=== PATIENT | female | born 1965 | race Hispanic/Latino ===

== ENCOUNTER 2018-02-09 22:20 | Emergency (ER) | payer OTHER ==
[2018-02-09] MEDS ORDERED: PHENAZOPYRIDINE 100MG TAB PO ONE (23:00)
[2018-02-09] MEDS ORDERED: SMZ./TMP. 800/160 MG TABLET ONE (23:00)
[2018-02-09] MEDS ORDERED: NITROFURAN MACRO 100 MG CAP PO ONE (23:00)
[2018-02-09 23:18] LABS: Urine Blood 1+ (NEG); Urine Glucose NEGATIVE (NEG); Urine Protein 1+ (NEG); Urine Specific Gravity 1.025 (1.005-1.030); Urine pH 5.5 (5.0-7.0)
[2018-02-09 23:51] LABS: Urine Bacteria 20-50 /HPF (<20); Urine Culture Reflex Order NOT NEEDED
[2018-02-09 23:52] LABS: Urine RBC <5 /HPF (NONE SEEN)
--- NOTE | 2018-02-10 00:21 | EDPHYS ---
Physician Documentation [facility] Name: Almaz Mario Age: 52 yrs Sex: Female : 1965 Arrival Date: 02/09/2018 Time: 22:23 Bed 25 Private MD: ED Physician Kaden Johnson HPI: 02/10 01:29 This 52 yrs old Female presents to ER via Ambulatory with complaints of Pain snw With Urination, Abdominal Pain. 01:29 The patient presents with urinary symptoms, dysuria, frequency, hematuria, hesitancy, snw urgency. Onset: The symptoms/episode began/occurred 7 day(s) ago, and became worse 3 day(s) ago, and became persistent. Modifying factors: The symptoms are alleviated by nothing. Associated signs and symptoms: The patient has no apparent associated signs or symptoms. Severity of symptoms: At their worst the symptoms were incapacitating, earlier today. The patient has experienced a previous episode. 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 CLAIM REVIEW MEDICAL DIRECTOR: 02/09 22:50 LMP N/A - Post-menopause tl3 Historical: - Allergies: 22:50 No Known Allergies; tl3 - Home Meds: 22:50 atorvastatin 20 mg Oral tab 1 tab once daily [Active]; gabapentin 600 mg Oral tab 2 tab tl3 3 times per day [Active]; lisinopril 10 mg Oral tab 1 tab once daily [Active]; Coricidin HBP 10-200 mg oral cap as needed [Active]; - PMHx: 22:50 Chronic pain; Hyperlipidemia; Hypertension; tl3 - PSHx: 22:50 ; tl3 - Immunization history:: Adult Immunizations up to date. - Social history:: Smoking status: Patient uses tobacco products, smokes one-half pack cigarettes per day, Patient/guardian denies using alcohol. ROS: 02/10 01:24 Eyes: Negative for injury, pain, redness, and discharge, ENT: Negative for injury, snw pain, and discharge, Neck: Negative for injury, pain, and swelling, Cardiovascular: Negative for chest pain, palpitations, and edema, Respiratory: Negative for shortness of breath, cough, wheezing, and pleuritic chest pain, Abdomen/GI: Negative for abdominal pain, nausea, vomiting, diarrhea, and constipation, Back: Negative for injury and pain, MS/Extremity: Negative for injury and deformity, Skin: Negative for injury, rash, and discoloration, Neuro: Negative for headache, weakness, numbness, tingling, and seizure. Constitutional: Positive for fatigue. : Positive for urinary symptoms, urinary frequency, small amounts, hematuria, burning with urination, suprapubic pressure, urgency. Exam: 01:24 Constitutional: This is a well developed, well nourished patient who is awake, alert, snw and uncomfortable/restless Head/Face: Normocephalic, atraumatic. Eyes: Pupils equal round and reactive to light, extra-ocular motions intact. Lids and lashes normal. Conjunctiva and sclera are non-icteric and not injected. Cornea within normal limits. Periorbital areas with no swelling, redness, or edema. ENT: Nares patent. No nasal discharge, no septal abnormalities noted. Tympanic membranes are normal and external auditory canals are clear. Oropharynx with no redness, swelling, or masses, exudates, or evidence of obstruction, uvula midline. Mucous membranes moist. Neck: Trachea midline, no thyromegaly or masses palpated, and no cervical lymphadenopathy. Supple, full range of motion without nuchal rigidity, or vertebral point tenderness. No Meningismus. Chest/axilla: Normal chest wall appearance and motion. Nontender with no deformity. No lesions are appreciated. Cardiovascular: Regular rate and rhythm with a normal S1 and S2. No gallops, murmurs, or rubs. Normal PMI, no JVD. No pulse deficits. Respiratory: Lungs have equal breath sounds bilaterally, clear to auscultation and percussion. No rales, rhonchi or wheezes noted. No increased work of breathing, no retractions or nasal flaring. Abdomen/GI: Soft, non-tender, with normal bowel sounds. No distension or tympany. No guarding or rebound. No evidence of tenderness throughout except suprapubic pressure. Back: No spinal tenderness. No costovertebral tenderness. Full range of motion. Skin: Warm, dry with normal turgor. Normal color with no rashes, no lesions, and no evidence of cellulitis. MS/ Extremity: Pulses equal, no cyanosis. Neurovascular intact. Full, normal range of motion. Neuro: Awake and alert, GCS 15, oriented to person, place, time, and situation. Cranial nerves II-XII grossly intact. Motor strength 5/5 in all extremities. Sensory grossly intact. Cerebellar exam normal. Normal gait. Vital Signs: 02/09 22:50 BP 145 / 98; Pulse 104; Resp 18; Temp 98.6; Pulse Ox 100% ; Weight 64.41 kg; Height 4 tl3 ft. 11 in. (149.86 cm); Pain 10/10; 02/10 00:44 BP 136 / 92; Pulse 98; Resp 18; Pulse Ox 100% ; tl3 02/09 22:50 Body Mass Index 28.68 (64.41 kg, 149.86 cm) tl3 MDM: 02/09 22:42 Patient medically screened. snw 02/10 01:27 Data reviewed: vital signs, nurses notes. Data interpreted: Pulse oximetry: on room air snw is 100 %. Interpretation: normal. Counseling: I had a detailed discussion with the patient and/or guardian regarding: the historical points, exam findings, and any diagnostic results supporting the discharge/admit diagnosis, the presence of at least one elevated blood pressure reading (>120/80) during this emergency department visit, lab results, the need for outpatient follow up, to return to the emergency department if symptoms worsen or persist or if there are any questions or concerns that arise at home. Special discussion: Based on the history and exam findings, there is no indication for further emergent testing or inpatient evaluation. I discussed with the patient/guardian the need to see the primary care provider for further evaluation of the symptoms. ED course: Pt seen recently for similar s/s per Dr. Jonhson, dx with yeast infection. Took course x 2 of Diflucan, symptoms worsened and pt c/o significant dysuria, frequency, urgency, suprapubic pressure. 02/09 22:33 Order name: Urine Culture snw 02/09 22:33 Order name: Urine Microscopic Only; Complete Time: 23:59 snw 02/09 22:45 Order name: Urine Dipstick--Ancillary (enter results); Complete Time: 23:20 rg2 02/09 22:33 Order name: Urine Dipstick-Ancillary (obtain specimen); Complete Time: 22:46 snw Administered Medications: 02/09 23:03 Drug: Pyridium 200 mg Route: PO; tl3 02/10 00:43 Follow up: Response: No adverse reaction tl3 02/09 23:03 Drug: Macrobid 100 mg Route: PO; tl3 02/10 00:43 Follow up: Response: No adverse reaction tl3 02/09 23:03 Drug: Bactrim (160 mg-800 mg (DS) 1 tablet Route: PO; tl3 02/10 00:43 Follow up: Response: No adverse reaction tl3 00:40 Drug: Bentyl 20 mg Route: PO; tl3 00:44 Follow up: Response: No adverse reaction; Medication administered at discharge. tl3 Disposition: 02:38 Co-signature as Attending Physician, Kaden Johnson MD. rn Disposition: 02/10/18 00:20 Discharged to Home. Impression: Dysuria, Urinary tract infection, site not specified. - Condition is Stable. - Discharge Instructions: Dysuria, Hypertension, Urinary Tract Infection. - Prescriptions for Bactrim DS 800- 160 mg Oral Tablet - take 1 tablet by ORAL route every 12 hours for 10 days; 20 tablet. Pyridium 200 mg Oral Tablet - take 1 tablet by ORAL route every 8 hours for 3 days; 9 tablet. Macrobid 100 mg Oral Capsule - take 1 capsule by ORAL route every 12 hours for 10 days; 20 capsule. - Medication Reconciliation Form, Thank You Letter, Antibiotic Education, Prescription Opioid Use form. - Follow up: Private Physician; When: 2 - 3 days; Reason: Recheck today's complaints, Continuance of care, Re-evaluation by your physician. Follow up: Emergency Department; When: As needed; Reason: Worsening of condition. Signatures: Dispatcher [employer] EDIN Kimberly Madrigal, LIZBET-C FILTERATION OPERATOR-Csnw Kaden Johnson MD MD rn Lowrey, Tammy, RN RN tl3 Corrections: (The following items were deleted from the chart) 00:46 00:20 02/10/2018 00:20 Discharged to Home. Impression: Dysuria; Urinary tract tl3 infection, site not specified. Condition is Stable. Forms are Medication Reconciliation Form, Thank You Letter, Antibiotic Education, Prescription Opioid Use. Follow up: Private Physician; When: 2 - 3 days; Reason: Recheck today's complaints, Continuance of care, Re-evaluation by your physician. Follow up: Emergency Department; When: As needed; Reason: Worsening of condition. snw
--- NOTE | 2018-02-10 00:21 | ER ---
Nurse's Notes [facility] Name: Almaz Mario Age: 52 yrs Sex: Female : 1965 Arrival Date: 02/09/2018 Time: 22:23 Bed 25 Private MD: Diagnosis: Dysuria;Urinary tract infection, site not specified Presentation: 02/09 22:40 Presenting complaint: Patient states: burning with urination, treated this week for a tl3 yeast infection, S/S did not improve, called PCP on Saturday and let them know and nothing was called in to her pharmacy. Transition of care: patient was not received from another setting of care. Onset of symptoms was February 02, 2018. Initial Sepsis Screen: Does the patient meet any 2 criteria? No. Patient's initial sepsis screen is negative. Does the patient have a suspected source of infection? No. Patient's initial sepsis screen is negative. Care prior to arrival: None. 22:40 Method Of Arrival: Ambulatory tl3 22:40 Acuity: KELLY 3 tl3 Triage Assessment: 22:50 General: Appears uncomfortable, well groomed, well developed, well nourished, Behavior tl3 is calm, cooperative, appropriate for age, anxious, restless. Pain: Complains of pain in pelvis. EENT: No signs and/or symptoms were reported regarding the EENT system. Neuro: Cardiovascular: Heart tones S1 S2 present. Respiratory: Airway is patent Trachea midline Respiratory effort is even, unlabored, Respiratory pattern is regular, symmetrical, Breath sounds are clear bilaterally. GI: No signs and/or symptoms were reported involving the gastrointestinal system. : Urine is cloudy, Reports burning with urination, urgency, urinary frequency. Derm: No signs and/or symptoms reported regarding the dermatologic system. Musculoskeletal: No signs and/or symptoms reported regarding the musculoskeletal system. SURGICAL ASST: 22:50 LMP N/A - Post-menopause tl3 Historical: - Allergies: 22:50 No Known Allergies; tl3 - Home Meds: 22:50 atorvastatin 20 mg Oral tab 1 tab once daily [Active]; gabapentin 600 mg Oral tab 2 tab tl3 3 times per day [Active]; lisinopril 10 mg Oral tab 1 tab once daily [Active]; Coricidin HBP 10-200 mg oral cap as needed [Active]; - PMHx: 22:50 Chronic pain; Hyperlipidemia; Hypertension; tl3 - PSHx: 22:50 ; tl3 - Immunization history:: Adult Immunizations up to date. - Social history:: Smoking status: Patient uses tobacco products, smokes one-half pack cigarettes per day, Patient/guardian denies using alcohol. Screenin:53 Abuse screen: Denies threats or abuse. Nutritional screening: No deficits noted. tl3 Tuberculosis screening: No symptoms or risk factors identified. Fall Risk None identified. Assessment: 22:53 Reassessment: No changes from previously documented assessment. Patient is alert, tl3 oriented x 3, equal unlabored respirations, skin warm/dry/pink. Kimberly at bedside for exam. 22:54 GI: No signs and/or symptoms were reported involving the gastrointestinal system. tl3 23:03 Reassessment: pt has made numerous trips to the bathroom since arrival, has urgency tl3 with small amount of output. 23:04 GI: Abd is soft and non tender X 4 quads. tl3 02/10 00:44 Reassessment: Patient appears in no apparent distress at this time. No changes from tl3 previously documented assessment. Patient and/or family updated on plan of care and expected duration. Pain level reassessed. Patient is alert, oriented x 3, equal unlabored respirations, skin warm/dry/pink. Vital Signs: 02/09 22:50 BP 145 / 98; Pulse 104; Resp 18; Temp 98.6; Pulse Ox 100% ; Weight 64.41 kg; Height 4 tl3 ft. 11 in. (149.86 cm); Pain 10/10; 02/10 00:44 BP 136 / 92; Pulse 98; Resp 18; Pulse Ox 100% ; tl3 02/09 22:50 Body Mass Index 28.68 (64.41 kg, 149.86 cm) tl3 ED Course: 02/09 22:23 Patient arrived in ED. ds1 22:29 Kimberly Madrigal FNP-C is PHCP. snw 22:29 Kaden Johnson MD is Attending Physician. snw 22:38 Macy Engel, CONNOR is Primary Nurse. tl3 22:44 Triage completed. tl3 22:50 Arm band placed on right wrist. tl3 22:53 Pt. is pacing. tl3 22:53 Patient has correct armband on for positive identification. Placed in gown. Bed in low tl3 position. Call light in reach. 22:53 No provider procedures requiring assistance completed. Patient did not have IV access tl3 during this emergency room visit. Administered Medications: 23:03 Drug: Pyridium 200 mg Route: PO; tl3 02/10 00:43 Follow up: Response: No adverse reaction tl3 02/09 23:03 Drug: Macrobid 100 mg Route: PO; tl3 02/10 00:43 Follow up: Response: No adverse reaction tl3 02/09 23:03 Drug: Bactrim (160 mg-800 mg (DS) 1 tablet Route: PO; tl3 02/10 00:43 Follow up: Response: No adverse reaction tl3 00:40 Drug: Bentyl 20 mg Route: PO; tl3 00:44 Follow up: Response: No adverse reaction; Medication administered at discharge. tl3 Outcome: 00:20 Discharge ordered by . snw 00:44 Discharged to home ambulatory. tl3 00:44 Condition: stable 00:44 Discharge instructions given to patient, Instructed on discharge instructions, follow up and referral plans. medication usage, Demonstrated understanding of instructions, follow-up care, medications, Prescriptions given X 3, stressed fluid intake, follow up with PCP 00:46 Patient left the ED. tl3 Addendum: 02/14/2018 07:37 Addendum: Culture Results: Positive urine culture. No further action required. Bacteria i w sensitive to prescribed antibiotic. Signatures: Kimberly Madrigal, MARKETING STRATEGY MANAGER-C MARKETING STRATEGY MANAGER-Csnw Leola Gonzalez ds1 Renita Kerr RN RN iw Macy Engel RN RN tl3
[2018-02-10] MEDS ORDERED: DICYCLOMINE HCL 10 MG CAP ONE (00:39)
== END 2018-02-10 00:46 | disposition home or self-care (01) ==
LOC: ER 22:20
DX: N39.0 Urinary tract infection, site not specified (principal); I10 Essential (primary) hypertension; E78.5 Hyperlipidemia, unspecified
CPT/HCPCS: 81003; 81015; 87077; 87086; 87088; 87186; 99283

== ENCOUNTER 2018-06-22 14:38 | Emergency (ER) | payer OTHER ==
[2018-06-22] MEDS ORDERED: NA CHLORIDE 0.9% 1,000 ML ONE ×2 (15:38→15:40)
[2018-06-22 16:13] LABS: Urine Blood TRACE (NEG); Urine Glucose NEGATIVE (NEG); Urine Protein NEGATIVE (NEG); Urine Specific Gravity >1.030 (1.005-1.030); Urine pH 5.5 (5.0-7.0)
[2018-06-22] MEDS ORDERED: KETOROLAC 30 MG/ML INJ ONE (16:24)
--- NOTE | 2018-06-22 17:42 | EDPHYS ---
Physician Documentation [facility] Name: Almaz Mario Age: 52 yrs Sex: Female : 1965 Arrival Date: 06/22/2018 Time: 14:39 Bed 23 Private MD: ED Physician Kaden Johnson HPI: 06/22 17:25 This 52 yrs old Female presents to ER via Ambulatory with complaints of Sore kb Throat, Cold Symptoms. 17:25 The patient presents with sore throat. The patient describes throat pain as constant. kb Onset: The symptoms/episode began/occurred 4 day(s) ago. Severity of symptoms: At their worst the symptoms were moderate, in the emergency department the symptoms are unchanged. Modifying factors: The symptoms are alleviated by nothing, the symptoms are aggravated by nothing, Patient's oral intake status: limited fluid intake, limited food intake. Associated signs and symptoms: Pertinent positives: cough, flu-like symptoms, malaise, rhinorrhea, Sore throat. The patient has not experienced similar symptoms in the past. The patient has not recently seen a physician. Pt c/o sore throat, headache, cough, congestion, body aches, malaise for 4 days. . Historical: - Allergies: 15:19 No Known Allergies; la1 - PMHx: 15:19 Chronic pain; Hyperlipidemia; Hypertension; la1 - Immunization history:: Adult Immunizations up to date. - Social history:: Smoking status: unknown. - Ebola Screening: : No symptoms or risks identified at this time. ROS: 17:25 Neck: Negative for injury, pain, and swelling, Cardiovascular: Negative for chest pain, kb palpitations, and edema, Abdomen/GI: Negative for abdominal pain, nausea, vomiting, diarrhea, and constipation, Back: Negative for injury and pain, : Negative for injury, bleeding, discharge, and swelling, MS/Extremity: Negative for injury and deformity, Skin: Negative for injury, rash, and discoloration. 17:25 Constitutional: Positive for body aches, fatigue, malaise, poor PO intake, Negative for chills, fever, weight loss. 17:25 ENT: Positive for rhinorrhea, sinus congestion, sore throat. 17:25 Respiratory: Positive for cough, Negative for dyspnea on exertion, hemoptysis, orthopnea, pleurisy, shortness of breath, sputum production, wheezing. Exam: 17:25 Constitutional: This is a well developed, well nourished patient who is awake, alert, kb and in no acute distress. Head/Face: Normocephalic, atraumatic. ENT: Nares patent. No nasal discharge, no septal abnormalities noted. Tympanic membranes are normal and external auditory canals are clear. Oropharynx with no redness, swelling, or masses, exudates, or evidence of obstruction, uvula midline. Mucous membranes moist. Neck: Trachea midline, no thyromegaly or masses palpated, and no cervical lymphadenopathy. Supple, full range of motion without nuchal rigidity, or vertebral point tenderness. No Meningismus. Chest/axilla: Normal chest wall appearance and motion. Nontender with no deformity. No lesions are appreciated. Cardiovascular: Regular rate and rhythm with a normal S1 and S2. No gallops, murmurs, or rubs. Normal PMI, no JVD. No pulse deficits. Respiratory: Lungs have equal breath sounds bilaterally, clear to auscultation and percussion. No rales, rhonchi or wheezes noted. No increased work of breathing, no retractions or nasal flaring. Abdomen/GI: Soft, non-tender, with normal bowel sounds. No distension or tympany. No guarding or rebound. No evidence of tenderness throughout. Skin: Warm, dry with normal turgor. Normal color with no rashes, no lesions, and no evidence of cellulitis. MS/ Extremity: Pulses equal, no cyanosis. Neurovascular intact. Full, normal range of motion. Neuro: Awake and alert, GCS 15, oriented to person, place, time, and situation. Cranial nerves II-XII grossly intact. Motor strength 5/5 in all extremities. Sensory grossly intact. Cerebellar exam normal. Normal gait. 17:25 Head/face: Sinus tenderness, that is mild. Vital Signs: 15:19 BP 135 / 87; Pulse 84; Resp 18; Temp 98.9; Pulse Ox 100% on R/A; Weight 63.5 kg; Height la1 4 ft. 11 in. (149.86 cm); 16:45 BP 137 / 84 RA Supine (auto/reg); Pulse 67; Resp 19 S; Pulse Ox 100% on R/A; Pain 3/10; jp3 17:46 BP 134 / 75; Pulse 74; Resp 16; Temp 97.5; Pulse Ox 100% on R/A; la1 15:19 Body Mass Index 28.28 (63.50 kg, 149.86 cm) la1 MDM: 15:20 Patient medically screened. kb 17:25 Data reviewed: vital signs, nurses notes. Data interpreted: Pulse oximetry: on room air kb is 100 %. Interpretation: normal. Counseling: I had a detailed discussion with the patient and/or guardian regarding: the historical points, exam findings, and any diagnostic results supporting the discharge/admit diagnosis, lab results, radiology results, the need for outpatient follow up, a family practitioner, to return to the emergency department if symptoms worsen or persist or if there are any questions or concerns that arise at home. 06/22 15:23 Order name: Strep; Complete Time: 15:55 kb 06/22 15:23 Order name: Flu; Complete Time: 15:55 kb 06/22 15:23 Order name: Juab Screen Profile; Complete Time: 16:15 kb 06/22 15:37 Order name: Urine Dipstick--Ancillary (enter results); Complete Time: 16:15 bd 06/22 15:55 Order name: Throat Culture EDMS 06/22 16:16 Order name: Chest Pa And Lat (2 Views) XRAY kb 06/22 15:23 Order name: Urine Dipstick-Ancillary (obtain specimen); Complete Time: 15:36 kb 06/22 15:23 Order name: IV Start; Complete Time: 15:36 kb Administered Medications: 15:35 Drug: NS 0.9% 1000 ml Route: IV; Rate: 1000 ml; Site: left antecubital; la1 17:16 Follow up: IV Status: Completed infusion la1 16:20 Drug: TORadol 30 mg Route: IVP; Site: left antecubital; la1 17:16 Follow up: Response: No adverse reaction; Pain is decreased la1 Disposition: 18:55 Co-signature as Attending Physician, Kaden Johnson MD. rn Disposition: 06/22/18 17:41 Discharged to Home. Impression: Acute sinusitis. - Condition is Stable. - Prescriptions for Prednisone 20 mg Oral Tablet - take 1 tablet by ORAL route once daily for 5 days; 5 tablet. - Medication Reconciliation Form, Thank You Letter, Antibiotic Education, Prescription Opioid Use form. - Follow up: Emergency Department; When: As needed; Reason: Worsening of condition. Follow up: Private Physician; When: 2 - 3 days; Reason: Recheck today's complaints, Continuance of care, Re-evaluation by your physician. Signatures: Dispatcher [employer] EDKoki Morales, ANESTHESIOLOGY PHYSICIAN-C ANESTHESIOLOGY PHYSICIAN-Ckb Kaden Johnson MD MD rn Abisai Prajapati RN RN la1 Corrections: (The following items were deleted from the chart) 17:46 17:41 06/22/2018 17:41 Discharged to Home. Impression: Acute sinusitis. Condition is la1 Stable. Forms are Medication Reconciliation Form, Thank You Letter, Antibiotic Education, Prescription Opioid Use. Follow up: Emergency Department; When: As needed; Reason: Worsening of condition. Follow up: Private Physician; When: 2 - 3 days; Reason: Recheck today's complaints, Continuance of care, Re-evaluation by your physician. kb
--- NOTE | 2018-06-22 17:42 | ER ---
Nurse's Notes [facility] Name: Almaz Mario Age: 52 yrs Sex: Female : 1965 Arrival Date: 06/22/2018 Time: 14:39 Bed 23 Private MD: Diagnosis: Acute sinusitis Presentation: 06/22 15:17 Presenting complaint: Patient states: sore throat, malaise, nasal drainage for 3 days. la1 Transition of care: patient was not received from another setting of care. Onset of symptoms was June 22, 2018. Risk Assessment: Do you want to hurt yourself or someone else? Patient reports no desire to harm self or others. Initial Sepsis Screen: Does the patient meet any 2 criteria? No. Patient's initial sepsis screen is negative. Does the patient have a suspected source of infection? No. Patient's initial sepsis screen is negative. Care prior to arrival: None. 15:17 Method Of Arrival: Ambulatory la1 15:17 Acuity: KELLY 3 la1 Historical: - Allergies: 15:19 No Known Allergies; la1 - PMHx: 15:19 Chronic pain; Hyperlipidemia; Hypertension; la1 - Immunization history:: Adult Immunizations up to date. - Social history:: Smoking status: unknown. - Ebola Screening: : No symptoms or risks identified at this time. Screenin:38 Abuse screen: Denies threats or abuse. Nutritional screening: No deficits noted. la1 Tuberculosis screening: No symptoms or risk factors identified. Fall Risk None identified. Assessment: 15:37 General: Appears in no apparent distress. Behavior is calm, cooperative. Pain: la1 Complains of pain in throat. Neuro: Level of Consciousness is awake, alert, obeys commands, Oriented to person, place, time, situation. Cardiovascular: Capillary refill < 3 seconds Patient's skin is warm and dry. Respiratory: Airway is patent Respiratory effort is even, unlabored, Respiratory pattern is regular, symmetrical, Breath sounds are clear bilaterally. GI: No signs and/or symptoms were reported involving the gastrointestinal system. : No signs and/or symptoms were reported regarding the genitourinary system. EENT: Throat is reddened. Vital Signs: 15:19 BP 135 / 87; Pulse 84; Resp 18; Temp 98.9; Pulse Ox 100% on R/A; Weight 63.5 kg; Height la1 4 ft. 11 in. (149.86 cm); 16:45 BP 137 / 84 RA Supine (auto/reg); Pulse 67; Resp 19 S; Pulse Ox 100% on R/A; Pain 3/10; jp3 17:46 BP 134 / 75; Pulse 74; Resp 16; Temp 97.5; Pulse Ox 100% on R/A; la1 15:19 Body Mass Index 28.28 (63.50 kg, 149.86 cm) la1 ED Course: 14:39 Patient arrived in ED. as 14:40 [facility]C [facility] kb 14:40 Kaden Johnson MD is Attending Physician. kb 15:17 Abisai Prajapati, CONNOR is Primary Nurse. la1 15:18 Triage completed. la1 15:20 Arm band placed on left wrist. la1 15:30 Urine collected: clean catch specimen, clear, shanna colored, Amount Voided: 30mL. jp3 15:38 Bed in low position. Call light in reach. la1 15:38 Inserted saline lock: 20 gauge in left antecubital area, using aseptic technique. Blood la1 collected. 16:42 Throat Culture Sent. jp3 17:28 X-ray completed. Patient tolerated procedure well. tm4 17:29 Chest Pa And Lat (2 Views) XRAY In Process Unspecified. EDMS 17:45 No provider procedures requiring assistance completed. IV discontinued, intact, la1 bleeding controlled, No redness/swelling at site. Pressure dressing applied. Administered Medications: 15:35 Drug: NS 0.9% 1000 ml Route: IV; Rate: 1000 ml; Site: left antecubital; la1 17:16 Follow up: IV Status: Completed infusion la1 16:20 Drug: TORadol 30 mg Route: IVP; Site: left antecubital; la1 17:16 Follow up: Response: No adverse reaction; Pain is decreased la1 Outcome: 17:41 Discharge ordered by . kb 17:45 Discharged to home ambulatory. la1 17:45 Condition: stable 17:45 Discharge instructions given to patient, Instructed on discharge instructions, follow up and referral plans. medication usage, Demonstrated understanding of instructions, follow-up care, medications, Prescriptions given X 1. 17:46 Patient left the ED. la1 Signatures: Dispatcher [employer] EDMS Koki Rodriguez FNP-C SCIENCE AND OPERATIONS OFFICER-Ckb Leigh Flores tm4 Dominga Polanco Lee, RN RN la1 Paul Osorio jp3
--- NOTE | 2018-06-22 20:26 | RAD REPORT ---
EXAM DESCRIPTION: RAD - Chest Pa And Lat (2 Views) - 06/22/2018 5:31 pm CLINICAL HISTORY: Sore throat, shortness of breath, cough COMPARISON: May 2015 TECHNIQUE: PA and lateral views of the chest were obtained. FINDINGS: The lungs are clear. Heart size is normal and central vasculature is within normal limit s. No pleural effusion or pneumothorax seen. No acute bony finding noted. No aortic abnormality. IMPRESSION: No acute cardiopulmonary process. No significant change from comparison.
== END 2018-06-22 17:46 | disposition home or self-care (01) ==
LOC: ER 14:38
DX: J01.90 Acute sinusitis, unspecified (principal); J02.9 Acute pharyngitis, unspecified; E78.5 Hyperlipidemia, unspecified; I10 Essential (primary) hypertension; G89.29 Other chronic pain
CPT/HCPCS: 36415; 71046; 81003; 86308; 87070; 87081; 87804; 96361; 96374; 99284; J7030

== ENCOUNTER 2019-04-19 08:52 | Emergency (ER) | payer OTHER, SELFPAY ==
[2019-04-19] MEDS ORDERED: LORazepam 2 MG/ML VIAL ONE ×2 (09:39→17:01)
[2019-04-19 09:41] LABS: Absolute Lymphocytes (CBC) 1.9 K/uL (0.7-4.9); Basophils % 0.5 % (0-1.3); Eosinophils % 0.5 % (0-4.4); Hematocrit 42.7 % (36.0-45.0); Lymphocytes % 19.2 % (15.3-44.8); MPV 8.1 fL (7.6-11.3); Monocytes % 3.5 % (3.3-12.3); RBC Red Blood Cell Count 4.53 M/uL (3.86-4.86)
[2019-04-19 09:43] LABS: Barbiturates NEGATIVE (NEGATIVE); Benzodiazepines NEGATIVE (NEGATIVE); Cocaine NEGATIVE (NEGATIVE); METHAMPHETAM NEGATIVE (NEGATIVE); Methadone NEGATIVE (NEGATIVE); Opiates NEGATIVE (NEGATIVE); Phencyclidine NEGATIVE (NEGATIVE); THC Cannibis NEGATIVE (NEGATIVE)
[2019-04-19 09:45] LABS: Protime INR 0.99
--- NOTE | 2019-04-19 09:54 | RAD REPORT ---
EXAM DESCRIPTION: CT - Head Brain Wo Cont - 04/19/2019 9:46 am CLINICAL HISTORY: Dizziness, transient alteration of awareness COMPARISON: May 2015 CT head. TECHNIQUE: Axial 5 mm thick images of the head were obtained without IV contrast. All CT scans are performed using dose optimization technique as appropriate and may include automated exposure control or mA/KV adjustment according to patient size. FINDINGS: No intracranial hemorrhage, mass, edema or shift of mid-line structures. No acute infarcti on changes seen. No abnormal extra-axial fluid collections. Ventricles are normal. Physiologic calcif ications are present. Mastoid air cells and visualized portions of the paranasal sinuses are clear. No acute bony findings. No significant change from comparison. IMPRESSION: Negative non-contrast CT head examination for acute or significant finding. .
[2019-04-19 09:55] LABS: ALT/SGPT 34 U/L (12-78); AST/SGOT 18 U/L (15-37); Albumin 4.9 g/dL (3.4-5.0); Alkaline Phosphatase 127 U/L (45-117); BUN Blood Urea Nitrogen 12 mg/dL (7-18); Bicarbonate 28 mmol/L (21-32); Bilirubin Direct < 0.1 mg/dL (0-0.2); Bilirubin Total 0.3 mg/dL (0.2-1.0); Glucose Level 107 mg/dL (74-106); Potassium 3.9 mmol/L (3.5-5.1); Protein, Total 8.3 g/dL (6.4-8.2); Sodium Level 140 mmol/L (136-145)
[2019-04-19 10:39] LABS: Urine Blood NEGATIVE (NEG); Urine Glucose NEGATIVE (NEG); Urine Protein NEGATIVE (NEG)
--- NOTE | 2019-04-19 22:28 | ER ---
Nurse's Notes [facility] Name: Almaz Mario Age: 53 yrs Sex: Female : 1965 Arrival Date: 04/19/2019 Time: 08:55 Bed 6 Private MD: Diagnosis: Suicidal ideations Presentation: 04/19 09:11 Presenting complaint: Patient states: SUICIDAL IDEATION 2/2 RECENT LOSS OF FAMILY bp MEMBERS. Transition of care: patient was not received from another setting of care. Onset of symptoms is unknown. Risk Assessment: Do you want to hurt yourself or someone else? Patient reports desire/thoughts of hurting themselves or someone else. Provider notified. Initial Sepsis Screen: Does the patient meet any 2 criteria? No. Patient's initial sepsis screen is negative. Does the patient have a suspected source of infection? No. Patient's initial sepsis screen is negative. Care prior to arrival: None. 09:11 Method Of Arrival: Ambulatory bp 09:11 Acuity: KELLY 2 bp Triage Assessment: 09:11 General: Appears distressed, comfortable, slender, Behavior is cooperative, appropriate bp for age, anxious, crying. Pain: Denies pain. EENT: No deficits noted. Neuro: Level of Consciousness is awake, alert, obeys commands, Oriented to person, place, time, situation, Appropriate for age. Cardiovascular: No deficits noted. Respiratory: No deficits noted. GI: No signs and/or symptoms were reported involving the gastrointestinal system. : No signs and/or symptoms were reported regarding the genitourinary system. Derm: No deficits noted. Musculoskeletal: No deficits noted. STUNTMAN: 09:11 LMP N/A - Post-menopause bp Historical: - Allergies: 09:07 No Known Allergies; ph - PMHx: 09:07 Chronic pain; Hyperlipidemia; Hypertension; ph - Immunization history:: Adult Immunizations up to date. - Social history:: Smoking status: Patient uses tobacco products, smokes one pack cigarettes per day. - Ebola Screening: : No symptoms or risks identified at this time. Screenin:08 Abuse screen: Denies threats or abuse. Denies injuries from another. Nutritional ph screening: No deficits noted. Tuberculosis screening: No symptoms or risk factors identified. Fall Risk None identified. Assessment: 09:15 General: SEE TRIAGE NOTE. bp 09:44 Reassessment: PT TO CT WITH MARKET EDITOR. bp 09:52 Reassessment: PT RETURNED TO ROOM. bp 10:20 Reassessment: ALL CURRENT ORDERS COMPLETED, BELONGINGS TO SECURITY EXCEPT PHONE AND bp HEADPHONES. RESULTS PENDING. SITTER AT [facility]. 11:14 Reassessment: PT PROVIDED LUNCH TRAY. aj 12:23 Reassessment: FAMILY AT [facility], TRANSFER IN PROCESS. bp 16:11 Reassessment: PT RESTING QUIETLY. NO RESPONSE FOR POTENTIAL TRANSFER FACILITIES AT THIS bp TIME. 18:50 Reassessment: FAMILY AT [facility], SECURITY CALLED AND BELONGINGS RELEASED TO SON. bp 19:15 Reassessment: Patient appears in no apparent distress at this time. Patient and/or ch family updated on plan of care and expected duration. Pain level reassessed. Patient is alert, oriented x 3, equal unlabored respirations, skin warm/dry/pink. pt has family at bedside. resps even and unlabored. pt states she feels better, but just wants it all to end. states if she went home, she is tired of being alone and would kill herself. 20:15 Reassessment: Patient appears in no apparent distress at this time. pt eating dinner in room, no s/s of distress, aaox4. pt tolerating food well, pt uses [facility]. awaiting transfer. family has left, sitter by room, door open. 21:45 Reassessment: nurse to nurse report given to robel at [facility] Robel instructs me ch to tell. Kimberly to page the psych, call the er dr. Angulo notified. 23:35 Reassessment: Patient appears in no apparent distress at this time. Patient and/or ch family updated on plan of care and expected duration. Pain level reassessed. Patient is alert, oriented x 3, equal unlabored respirations, skin warm/dry/pink. pt has acceptance to psych facility. report given to EMS and [facility]. awaiting pt belongings to come so EMS can transports pt. Psych: 09:17 Subjective: Patient's mood is sad, hopeless, Delusions are denied, Hallucinations are bp denied Having thoughts of suicide. Denies suicidal plan. Objective: Patient is cooperative, Speech is normal, soft, Affect is appropriate. Interventions: Removed personal items and placed in bag. Patient placed in hospital gown. Searched person for dangerous items. Urine collected and sent for urine drug test. Belonging list filled out. Suicide Risk Assessment: Sad Person Scale: Sex of patient: Female: Score 0 points. Age of patient: Score 0 point if patient falls outside of specified age parameters. Depression: Score 1 point if signs of depression are present. Previous Attempt: Score 0 point if patient has not previously attempted suicide. Substance Abuse: Score 0 point if patient does not abuse alcohol or drugs. Rational Thinking: Score 0 point if patient has rational thinking. Social Support: Score 1 point if social support is lacking and/or unavailable. Organized Plan: Score 0 if patient did not have an organized plan in place. Relationship: Score 1 point if patient is , , , or for a single male Chronic Sickness: Score 0 point if patient does not have a chronic illness, debilitating, or severe disorder. TOTAL POINTS: If total points are 3-4, proposed clinical action is close follow-up/consider hospitalization. Safety Checks: Personal items have been removed. Door is open. No visitors are present at this time. Pt denies substance abuse. Commitment: Patient will be a voluntary commitment. Vital Signs: 09:11 BP 136 / 83; Pulse 86; Resp 16; Temp 97.4; Pulse Ox 99% ; Weight 52.16 kg; Height 4 ft. bp 11 in. (149.86 cm); 10:00 BP 135 / 83; Pulse 79; Resp 14; Pulse Ox 99% ; bp 13:17 BP 101 / 77; Pulse 92; Resp 15; Pulse Ox 99% on R/A; dh3 16:12 BP 111 / 74; Pulse 85; Resp 16; Temp 98.0(O); Pulse Ox 99% on R/A; Pain 0/10; dh3 21:32 BP 129 / 74; Pulse 80; Resp 14; Temp 98.2(O); Pulse Ox 97% on R/A; ag4 23:35 BP 120 / 80; Pulse 80; Resp 16; Temp 98.7; Pulse Ox 99% on R/A; Pain 0/10; ch 09:11 Body Mass Index 23.23 (52.16 kg, 149.86 cm) bp 13:17 patient sleeping dh3 ED Course: 08:55 Patient arrived in ED. rg4 09:03 Octaviano Gambino, RN is Primary Nurse. bp 09:11 Arm band placed on. EKG completed in triage. Results shown to MD. EKG completed in bp triage. Results shown to MD. 09:11 Safety checks: Items removed: yes. Door open/sign placed on door: yes. Family/friend dh3 present: no. Sitter present: Yes. 09:12 Triage completed. bp 09:15 Safety checks: Items removed: yes. Door open/sign placed on door: yes. Family/friend dh3 present: no. Sitter present: Yes. 09:27 Koki Rodriguez FNP-C is PHCP. kb 09:27 Karel Armas MD is Attending Physician. kb 09:28 Inserted saline lock: 22 gauge in right antecubital area, using aseptic technique. bp Blood collected. 09:30 Safety checks: Items removed: yes. Door open/sign placed on door: yes. Family/friend dh3 present: no. Sitter present: Yes. 09:45 Safety checks: Items removed: yes. Door open/sign placed on door: yes. Family/friend dh3 present: no. Sitter present: Yes. 09:47 CT Head Brain wo Cont In Process Unspecified. EDMS 10:00 Safety checks: Items removed: yes. Door open/sign placed on door: yes. Family/friend dh3 present: no. Sitter present: Yes. 10:01 EKG done, by ED staff, reviewed by Karel Armas MD. dh3 10:09 called the [facility]/ Lizet from the crisis line will page out the screener on eb call to come evaluate the patient. 10:15 Safety checks: Items removed: yes. Door open/sign placed on door: yes. Family/friend dh3 present: no. Sitter present: Yes. 10:30 Safety checks: Items removed: yes. Door open/sign placed on door: yes. Family/friend dh3 present: no. Sitter present: Yes. 10:45 Safety checks: Items removed: yes. Door open/sign placed on door: yes. Family/friend dh3 present: no. Sitter present: Yes. 11:00 Safety checks: Items removed: yes. Door open/sign placed on door: yes. Family/friend dh3 present: no. Sitter present: Yes. 11:15 Safety checks: Items removed: yes. Door open/sign placed on door: yes. Family/friend dh3 present: no. Sitter present: Yes. 11:30 Safety checks: Items removed: yes. Door open/sign placed on door: yes. Family/friend dh3 present: no. Sitter present: Yes. 11:45 Safety checks: Items removed: yes. Door open/sign placed on door: yes. Family/friend dh3 present: no. Sitter present: Yes. 12:00 Safety checks: Items removed: yes. Door open/sign placed on door: yes. Family/friend jp3 present: yes. Family/friends encouraged to stay with patient. Sitter present: Yes. 12:15 Safety checks: Items removed: yes. Door open/sign placed on door: yes. Family/friend jp3 present: no. Sitter present: Yes. 12:15 faxed patient information to the following facilities in the attempt to transfer ; [facility], [facility], [facility], [facility], [facility], [facility] , [facility], [facility], [facility], [facility], [facility], [facility], and [facility]. 12:30 Safety checks: Items removed: yes. Door open/sign placed on door: yes. Family/friend dh3 present: yes. Family/friends encouraged to stay with patient. Sitter present: Yes. 12:36 Fany from [facility] called to decline patient in transfer due to being at capacity. 12:45 Safety checks: Items removed: yes. Door open/sign placed on door: yes. Family/friend dh3 present: yes. Family/friends encouraged to stay with patient. Sitter present: Yes. 13:00 Safety checks: Items removed: yes. Door open/sign placed on door: yes. Family/friend dh3 present: no. Sitter present: Yes. 13:15 Safety checks: Items removed: yes. Door open/sign placed on door: yes. Family/friend dh3 present: no. Sitter present: Yes. 13:30 Safety checks: Items removed: yes. Door open/sign placed on door: yes. Family/friend dh3 present: no. Sitter present: Yes. 13:45 Safety checks: Items removed: yes. Door open/sign placed on door: yes. Family/friend dh3 present: no. Sitter present: Yes. 14:00 Safety checks: Items removed: yes. Door open/sign placed on door: yes. Family/friend dh3 present: no. Sitter present: Yes. 14:00 [facility] called to decline patient in transfer due to being at capacity. eb 14:15 Safety checks: Items removed: yes. Door open/sign placed on door: yes. Family/friend dh3 present: no. Sitter present: Yes. 14:30 Safety checks: Items removed: yes. Door open/sign placed on door: yes. Family/friend dh3 present: no. Sitter present: Yes. 14:45 Safety checks: Items removed: yes. Door open/sign placed on door: yes. Family/friend dh3 present: no. Sitter present: Yes. 15:00 Safety checks: Items removed: yes. Door open/sign placed on door: yes. Family/friend dh3 present: yes. Family/friends encouraged to stay with patient. Sitter present: Yes. 15:15 Safety checks: Items removed: yes. Door open/sign placed on door: yes. Family/friend dh3 present: no. Sitter present: Yes. 15:30 Safety checks: Items removed: yes. Door open/sign placed on door: yes. Family/friend dh3 present: no. Sitter present: Yes. 15:45 Safety checks: Items removed: yes. Door open/sign placed on door: yes. Family/friend dh3 present: no. Sitter present: Yes. 16:00 Safety checks: Items removed: yes. Door open/sign placed on door: yes. Family/friend dh3 present: no. Sitter present: Yes. 16:15 Safety checks: Items removed: yes. Door open/sign placed on door: yes. Family/friend dh3 present: no. Sitter present: Yes. 16:30 Safety checks: Items removed: yes. Door open/sign placed on door: yes. Family/friend dh3 present: no. Sitter present: Yes. 16:45 Safety checks: Items removed: yes. Door open/sign placed on door: yes. Family/friend dh3 present: no. Sitter present: Yes. 17:00 Safety checks: Items removed: yes. Door open/sign placed on door: yes. Family/friend dh3 present: no. Sitter present: Yes. 17:15 Safety checks: Items removed: yes. Door open/sign placed on door: yes. Family/friend dh3 present: no. Sitter present: Yes. 17:30 PHCP role handed off by Koki Rodriguez FNP-C kb 17:30 Kimberly Madrigal FNP-C is PHCP. kb 17:30 Safety checks: Items removed: yes. Door open/sign placed on door: yes. Family/friend dh3 present: no. Sitter present: Yes. 17:45 Safety checks: Items removed: yes. Door open/sign placed on door: yes. Family/friend dh3 present: yes. Family/friends encouraged to stay with patient. Sitter present: Yes. 18:00 Safety checks: Items removed: yes. Door open/sign placed on door: yes. Family/friend dh3 present: no. Sitter present: Yes. 18:15 Safety checks: Items removed: yes. Door open/sign placed on door: yes. Family/friend dh3 present: no. Sitter present: Yes. 18:30 Safety checks: Items removed: yes. Door open/sign placed on door: yes. Family/friend dh3 present: yes. Sitter present: Yes. 18:45 Safety checks: Items removed: yes. Door open/sign placed on door: yes. Family/friend dh3 present: yes. Sitter present: Yes. 19:00 Safety checks: Items removed: yes. Door open/sign placed on door: yes. Family/friend dh3 present: no. Sitter present: Yes. 19:15 Safety checks: Items removed: yes. Door open/sign placed on door: yes. Family/friend ag4 present: no. Sitter present: Yes. 19:30 Safety checks: Items removed: yes. Door open/sign placed on door: yes. Family/friend ag4 present: no. Sitter present: Yes. 19:45 Safety checks: Items removed: yes. Door open/sign placed on door: yes. Family/friend ag4 present: no. Sitter present: Yes. 20:00 Safety checks: Items removed: yes. Door open/sign placed on door: yes. Family/friend ag4 present: yes. Sitter present: Yes. 20:00 Patient has correct armband on for positive identification. Placed in gown. Bed in low ch position. Call light in reach. Side rails up X 1. Adult w/ patient. Noise minimized. Lights dimmed. Warm blanket given. Pillow given. Diet tray ordered. PO fluids given. Verbal reassurance given. 20:15 Safety checks: Items removed: yes. Door open/sign placed on door: yes. Family/friend ag4 present: no. Sitter present: Yes. 20:30 Safety checks: Items removed: yes. Door open/sign placed on door: yes. Family/friend ag4 present: no. Sitter present: Yes. 20:45 Safety checks: Items removed: yes. Door open/sign placed on door: yes. Family/friend ag4 present: no. Sitter present: Yes. 21:00 Safety checks: Items removed: yes. Door open/sign placed on door: yes. Family/friend ag4 present: no. Sitter present: Yes. 21:15 Safety checks: Items removed: yes. Door open/sign placed on door: yes. Family/friend ag4 present: no. Sitter present: Yes. 21:30 Safety checks: Items removed: yes. Door open/sign placed on door: yes. Family/friend ag4 present: no. Sitter present: Yes. 21:45 Safety checks: Items removed: yes. Door open/sign placed on door: yes. Family/friend ag4 present: no. Sitter present: Yes. 22:00 Safety checks: Items removed: yes. Door open/sign placed on door: yes. Family/friend ag4 present: no. Sitter present: Yes. 22:09 Primary Nurse role handed off by Octaviano Gambino, CONNOR 22:09 Jayna Wilson, CONNOR is Primary Nurse. 22:15 Safety checks: Items removed: yes. Door open/sign placed on door: yes. Family/friend ag4 present: yes. Sitter present: Yes. 22:30 Safety checks: Items removed: yes. Door open/sign placed on door: yes. Family/friend ag4 present: no. Sitter present:. 22:45 Safety checks: Items removed: yes. Door open/sign placed on door: yes. Family/friend ag4 present: no. Sitter present: Yes. 23:00 Safety checks: Items removed: yes. Door open/sign placed on door: yes. Family/friend ag4 present: no. Sitter present: Yes. 23:15 Safety checks: Items removed: yes. Door open/sign placed on door: yes. Family/friend ag4 present: yes. Sitter present: Yes. 23:30 Safety checks: Items removed: yes. Door open/sign placed on door: yes. Family/friend ag4 present: yes. Sitter present: Yes. 23:35 No apparent distress. Resting quietly. ch 23:35 No provider procedures requiring assistance completed. IV discontinued, intact, ch bleeding controlled, No redness/swelling at site. Pressure dressing applied. 23:45 Safety checks: Items removed: yes. Door open/sign placed on door: yes. Family/friend ag4 present: yes. Sitter present: Yes. Administered Medications: 09:28 Drug: Ativan 2 mg Route: IVP; Site: right antecubital; bp 09:37 Follow up: Response: Anxiety decreased bp 17:33 Drug: Ativan 2 mg Route: IVP; Site: right antecubital; bp 18:11 Follow up: Response: Anxiety decreased bp Outcome: 22:27 ER care complete, transfer ordered by . snw 23:56 Patient left the ED. Signatures: Dispatcher [employer] EDMS Koki Rodriguez, LIZBET-C VOCATIONAL TECHNICAL EDUCATION TEACHER-Jayna Tariq RN RN ch Myers, Amanda, RN RN aj Therrien, Shelly VOCATIONAL TECHNICAL EDUCATION TEACHER-C VOCATIONAL TECHNICAL EDUCATION TEACHER-Hanna Fernandes RN RN Nicky Mercedes RN RN ph Garcia, Rubi rg4 Herrera, Deanna [facility] Octaviano Gambino RN RN bp Botello, Elizabeth eb Pisarski, Jacob 3 Etienne Keating ag4 Corrections: (The following items were deleted from the chart) 22:01 21:43 Safety checks: Items removed: yes. Door open/sign placed on door: yes. ag4 Family/friend present: no. Sitter present: Yes. ag4
--- NOTE | 2019-04-19 22:29 | EDPHYS ---
Physician Documentation [facility] Name: Almaz Mario Age: 53 yrs Sex: Female : 1965 Arrival Date: 04/19/2019 Time: 08:55 Bed 6 Private MD: ED Physician Karel Armas HPI: 04/19 10:26 This 53 yrs old Female presents to ER via Ambulatory with complaints of kb Depression. 10:26 The patient presents to the emergency department with depression, over a , the kb patient's father, the patient's spouse, suicide ideation, but the patient has no formulated plan. Onset: The symptoms/episode began/occurred 1 week(s) ago. Associated signs and symptoms: Pertinent positives; depression, suicide ideation. Severity of symptoms: At their worst the symptoms were moderate in the emergency department the symptoms are unchanged. The patient has not experienced similar symptoms in the past. The patient has been recently seen by a physician:. Pt states she has been having suicidal ideations for a week. States her in November and father a month later. States she thought she was doing ok with their passing, but has been reminded of the past and the things they used to do together a lot of the last week and it has triggered depression and now suicidal thoughts. Pt does not have a plan. Was seen at [facility] on Saturday and has an appt with psych tomorrow to get put on medications, but came today because "I'm not going to make it until then.". CLOUD PHYSICIST: 09:11 LMP N/A - Post-menopause bp Historical: - Allergies: 09:07 No Known Allergies; ph - PMHx: 09:07 Chronic pain; Hyperlipidemia; Hypertension; ph - Immunization history:: Adult Immunizations up to date. - Social history:: Smoking status: Patient uses tobacco products, smokes one pack cigarettes per day. - Ebola Screening: : No symptoms or risks identified at this time. ROS: 10:24 Constitutional: Negative for fever, chills, and weight loss, Eyes: Negative for injury, kb pain, redness, and discharge, ENT: Negative for injury, pain, and discharge, Neck: Negative for injury, pain, and swelling, Cardiovascular: Negative for chest pain, palpitations, and edema, Respiratory: Negative for shortness of breath, cough, wheezing, and pleuritic chest pain, Abdomen/GI: Negative for abdominal pain, nausea, vomiting, diarrhea, and constipation, Back: Negative for injury and pain, : Negative for injury, bleeding, discharge, and swelling, MS/Extremity: Negative for injury and deformity, Skin: Negative for injury, rash, and discoloration. 10:24 Neuro: Positive for dizziness. 10:24 Psych: Positive for depression, suicidal ideation. Exam: 10:24 Constitutional: This is a well developed, well nourished patient who is awake, alert, kb and in no acute distress. Head/Face: Normocephalic, atraumatic. ENT: Nares patent. No nasal discharge, no septal abnormalities noted. Tympanic membranes are normal and external auditory canals are clear. Oropharynx with no redness, swelling, or masses, exudates, or evidence of obstruction, uvula midline. Mucous membranes moist. Neck: Trachea midline, no thyromegaly or masses palpated, and no cervical lymphadenopathy. Supple, full range of motion without nuchal rigidity, or vertebral point tenderness. No Meningismus. Chest/axilla: Normal chest wall appearance and motion. Nontender with no deformity. No lesions are appreciated. Cardiovascular: Regular rate and rhythm with a normal S1 and S2. No gallops, murmurs, or rubs. Normal PMI, no JVD. No pulse deficits. Respiratory: Lungs have equal breath sounds bilaterally, clear to auscultation and percussion. No rales, rhonchi or wheezes noted. No increased work of breathing, no retractions or nasal flaring. Abdomen/GI: Soft, non-tender, with normal bowel sounds. No distension or tympany. No guarding or rebound. No evidence of tenderness throughout. Back: No spinal tenderness. No costovertebral tenderness. Full range of motion. Skin: Warm, dry with normal turgor. Normal color with no rashes, no lesions, and no evidence of cellulitis. MS/ Extremity: Pulses equal, no cyanosis. Neurovascular intact. Full, normal range of motion. Neuro: Awake and alert, GCS 15, oriented to person, place, time, and situation. Cranial nerves II-XII grossly intact. Motor strength 5/5 in all extremities. Sensory grossly intact. Cerebellar exam normal. Normal gait. 10:24 Psych: Behavior/mood is cooperative, suicidal, depressed, Affect is calm, tearful and crying during some parts of exam. Oriented to person, place, time, Patient having thoughts of suicide. Denies suicidal plan. Judgement / Insight is normal. Memory is normal. Delusions/hallucinations are not present. Vital Signs: 09:11 BP 136 / 83; Pulse 86; Resp 16; Temp 97.4; Pulse Ox 99% ; Weight 52.16 kg; Height 4 ft. bp 11 in. (149.86 cm); 10:00 BP 135 / 83; Pulse 79; Resp 14; Pulse Ox 99% ; bp 13:17 BP 101 / 77; Pulse 92; Resp 15; Pulse Ox 99% on R/A; dh3 16:12 BP 111 / 74; Pulse 85; Resp 16; Temp 98.0(O); Pulse Ox 99% on R/A; Pain 0/10; dh3 21:32 BP 129 / 74; Pulse 80; Resp 14; Temp 98.2(O); Pulse Ox 97% on R/A; ag4 23:35 BP 120 / 80; Pulse 80; Resp 16; Temp 98.7; Pulse Ox 99% on R/A; Pain 0/10; ch 09:11 Body Mass Index 23.23 (52.16 kg, 149.86 cm) bp 13:17 patient sleeping dh3 MDM: 09:27 Patient medically screened. kb 10:23 Data reviewed: vital signs, nurses notes. Data interpreted: Pulse oximetry: on room air kb is 99 %. Interpretation: normal. 11:57 ED course: [facility] recommends inpatient treatment. Pt states she cannot be sure that kb she will stay safe at home. 17:28 Transition of care: After a detail discussion of the patient's case, care is kb transferred to [facility]. 22:20 Physician consultation: [facility] was called at 22:15, was contacted at 22:20, yandel regarding regarding transfer, to a psychiatric hospital. Will return phone call post consultation and will hopefully transfer pt to [facility] psych. 22:25 Physician consultation: regarding Dr. Gil kindly accepts pt in transfer for inpatient [facility] admission/psych. 22:27 Other consultation: Spoke with ED MD at [facility] re: pt stability for transfer. snw 04/19 09:16 Order name: Acetaminophen bp 04/19 09:16 Order name: Basic Metabolic Panel bp 04/19 09:16 Order name: CBC with Diff bp 04/19 09:16 Order name: ETOH Level bp 04/19 09:16 Order name: Hepatic Function; Complete Time: 09:56 bp 04/19 09:16 Order name: PT-INR; Complete Time: 10:32 bp 04/19 09:16 Order name: Ptt, Activated; Complete Time: 10:32 bp 04/19 09:16 Order name: Salicylate; Complete Time: 10:08 bp 04/19 09:16 Order name: Urine Drug Screen; Complete Time: 09:47 bp 04/19 09:17 Order name: Acetaminophen Level; Complete Time: 09:56 EDMS 04/19 09:17 Order name: Basic Metabolic Panel; Complete Time: 09:56 EDMS 04/19 09:18 Order name: CBC with Automated Diff; Complete Time: 09:52 EDMS 04/19 09:18 Order name: Alcohol Serum/Plasma; Complete Time: 10:03 EDMS 04/19 09:27 Order name: Urine Dipstick--Ancillary (enter results); Complete Time: 10:41 eb 04/19 09:16 Order name: Urine Test (obtain specimen); Complete Time: 09:29 bp 04/19 09:16 Order name: EKG; Complete Time: 09:19 bp 04/19 09:16 Order name: EKG - Nurse/Tech; Complete Time: 09:30 bp 04/19 09:16 Order name: IV Saline Lock; Complete Time: 09:29 bp 04/19 09:16 Order name: Labs collected and sent; Complete Time: 09:30 bp 04/19 09:16 Order name: Urine Dipstick-Ancillary (obtain specimen); Complete Time: 09:30 bp 04/19 09:27 Order name: Urine --Ancillary (enter results); Complete Time: 10:41 eb 04/19 09:32 Order name: CT Head Brain wo Cont; Complete Time: 09:55 kb 04/19 10:16 Order name: Diet Regular; Complete Time: 10:19 dh3 04/19 15:33 Order name: Diet Regular; Complete Time: 15:34 dh3 Administered Medications: 09:28 Drug: Ativan 2 mg Route: IVP; Site: right antecubital; bp 09:37 Follow up: Response: Anxiety decreased bp 17:33 Drug: Ativan 2 mg Route: IVP; Site: right antecubital; bp 18:11 Follow up: Response: Anxiety decreased bp Disposition: 04/19/19 22:27 Transfer ordered to Psych Facility. Diagnosis is Suicidal ideations. - Reason for transfer: Higher level of care. - Accepting physician is Dr. Gil and Dr. Sánchez Ortiz. - Condition is Stable. - Problem is an acute exacerbation. - Symptoms have worsened. Addendum: 04/23/2019 02:14 Co-signature as Attending Physician, Karel Armas MD. m a2 Signatures: Dispatcher [employer] EDMS Koki Rodriguez, REMOTE ENCODING CENTER MANAGER-C REMOTE ENCODING CENTER MANAGER-Ckb Kimberly Madrigal REMOTE ENCODING CENTER MANAGER-C REMOTE ENCODING CENTER MANAGER-Csnw Hanna Polk, RN RN Nicky Coleman, RN RN Octaviano Diaz, RN RN Karel Johnson MD MD ma2 Corrections: (The following items were deleted from the chart) 04/19 22:35 22:27 04/19/2019 22:27 Transfer ordered to Psych Facility. Diagnosis is Suicidal snw ideations. Reason for transfer: Higher level of care. Accepting physician is Dr. Gil . Condition is Stable. Problem is an acute exacerbation. Symptoms have worsened. snw 23:56 22:35 04/19/2019 22:27 Transfer ordered to Psych Facility. Diagnosis is Suicidal fc ideations. Reason for transfer: Higher level of care. Accepting physician is Dr. Gil and Dr. Sánchez Ortiz. Condition is Stable. Problem is an acute exacerbation. Symptoms have worsened. snw
--- NOTE | 2019-04-20 12:54 | EKG ---
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
== END 2019-04-19 23:56 ==
LOC: ER 08:52
DX: R45.851 Suicidal ideations (principal); E78.5 Hyperlipidemia, unspecified; I10 Essential (primary) hypertension; F17.210 Nicotine dependence, cigarettes, uncomplicated
CPT/HCPCS: 36415; 70450; 80048; 80076; 80307; 80320; 80329; 81003; 81025; 85025; 85610; 85730; 93005; 96374; 99285

== ENCOUNTER → 2023-12-27 | Emergency (ER) | payer SELFPAY ==
[~2023-12-27] MED LIST: DIPHENHYDRAMINE 50 MG/ML VIAL ONE; MECLIZINE HCL 12.5 MG TAB ONE; METOCLOPRAMIDE 10 MG/2mL INJ ONE; Magnesium Sulfate 2gm IVPB 2 G/50 ML BAG IV ONE
--- OUTSIDE RECORDS SUMMARY | 2023-12-27 17:41 | XMS REPORT | Continuity of Care Document ---
Author Name Unknown Address [address] [place] [address] [facility] thconnect Address [address] [place] [address] Care Team Providers Care Tool Crib Lead Name Role Phone RENITA GOMEZ Primary Care Physician Unav ailable RENITA GOMEZ Attending Clinician Unavail able Renita Madden Attending Clinician + Doctor Unassigned, [place] Attending Clinician U GUNNAR Ambriz Attending Clinician Unavailable Payers Payer Name Policy Type Policy Number Effective Date Expirati on Date Source [employer] 0-100% [id number] 2021 00:00:00 2022 00:00:00 [employer] [facility] [id number] 2016 00:00:00 Problems Condition Name Condition Details Condition Category Status Onset Date Resolution Date Last Treatment Date Treating Clinician Comments Source Cervical high risk human papillomav irus (HPV) DNA test positive Cervical high risk human papillomav irus (HPV) DNA test positive Disease Active 10-23 00:00: 00 Overview: Formattin g of this note might be different from the original. Will need repeat pap in 12 months [facility] Other general counseling and advice for contracept omi management Other general counseling and advice for contracept omi management Disease Active 2020-10 00:00: 00 [facility] Menopausal state Menopausal state Disease Active 2020-10 00:00: 00 [facility] Fatty liver Fatty liver Disease Active 03-26 00:00: 00 [facility] Common bile duct dilation Common bile duct dilation Disease Active 03-26 00:00: 00 [facility] GERD (gastroeso phageal reflux disease) GERD (gastroeso phageal reflux disease) Disease Active 12-21 00:00: 00 [facility] Hyperthyro idism Hyperthyro idism Disease Active 12-20 00:00: 00 [facility] Essential hypertensi on Essential hypertensi on Disease Active 04-07 00:00: 00 [facility] Breast mass, right Breast mass, right Disease Active 04-07 00:00: 00 [facility] DDD (degenerat omi disc disease), lumbar DDD (degenerat omi disc disease), lumbar Disease Active 04-07 00:00: 00 [facility] Chronic low back pain with sciatica, sciatica laterality unspecifie d, unspecifie d back pain laterality Chronic low back pain with sciatica, sciatica laterality unspecifie d, unspecifie d back pain laterality Disease Active 04-07 00:00: 00 [facility] Osteoarthr itis of lumbar spine, unspecifie d spinal osteoarthr itis complicati on status Osteoarthr itis of lumbar spine, unspecifie d spinal osteoarthr itis complicati on status Disease Active 04-07 00:00: 00 [facility] Bulging lumbar disc Bulging lumbar disc Disease Active 04-07 00:00: 00 [facility] External hemorrhoid s External hemorrhoid s Disease Active 04-07 00:00: 00 [facility] Mammogram abnormal Mammogram abnormal Disease Active 05-22 00:00: 00 Overview: Formattin g of this note might be different from the original. S/SX, Dx: RIGHT BREAST: Fat lobule/li na on ultrasoun d in the axillary tail region. Findings are probably benign. A short interval follow-up is recommend ed in 6 months. From [facility] and mammogram report done 05/06/2013 Pt DNK'd x 2 Lost to follow up [facility] Hyperlipid emia Hyperlipid emia Disease Active [facility] Prediabete s Prediabete s Disease Active [facility] Allergies, Adverse Reactions, Alerts Allergy Name Allergy Type Status Severity Reaction(s) Onset Date Inactive Date Treating Clinician Comments Source Duloxeti ne Propensi ty to adverse reaction s Active Other - See comments 12-05 [facility]:00[facility] Active Other-Cmnt 12-05 00:00: 00 [facility] Hydrocod one Propensi ty to adverse reaction s Active Nausea and/or Vomiting 04-23 00:00: 00 [facility] HYDROCOD ONE DRUG INGREDI Active N/V 04-23 00:00: 00 [facility] Social History Social Habit Start Date Stop Date Quantity Comments Source History of tobacco use Cigarette Smoker [facility] Exposure to SARS-CoV-2 (event) Not sure [facility] Alcohol intake 2021-10-09 00:00:00 2021-10-09 00:00:00 Current non-drinker of alcohol (finding) [facility] Cigarettes smoked current (pack per day) - Reported 2013-04-23 00:00:00 2013-04-23 00:00:00 [facility] Tobacco use and exposure 2013-04-23 00:00:00 2013-04-23 00:00:00 Never used [facility] Sex Assigned At 1965 00:00:00 1965 00:00:00 [facility] Smoking Status Start Date Stop Date Source Current every day smoker 2013-04-23 00:00:00 [facility] Medications Ordered Medication Name Filled Medication Name Start Date Stop Date Current Medication? Ordering Clinician Indication Dosage Frequency Signature (SIG) Comments Components Source TAKE 1 CAPSULE BY MOUTH EVERY DAY 2021-10 2-15 00:00: 00 No TAKE 1 TABLET DAILY. 2021-10 2- 00:00: 00 No Dose Unknown 2022-0 8-04 00:00: 00 No Dose Unknown 2022-0 8-04 00:00: 00 No Dose Unknown 2022-0 8-04 00:00: 00 No Seroquel 300 mg tablet 2022-0 7-07 00:00: 00 No 1mg fluoxetine 40 mg capsule 2022-0 7-07 00:00: 00 No 1mg gabapentin 300 mg capsule 2022-0 7-07 00:00: 00 No 1mg Dose Unknown 2022-0 7-07 00:00: 00 No Dose Unknown 2022-0 7-07 00:00: 00 No Seroquel 300 mg tablet 2022-0 5-18 00:00: 00 No 1mg fluoxetine 40 mg capsule 2022-0 5-18 00:00: 00 No 1mg gabapentin 300 mg capsule 2022-0 5-18 00:00: 00 No 1mg Seroquel 300 mg tablet 2022-0 4-06 00:00: 00 No 1mg fluoxetine 40 mg capsule 2022-0 4-06 00:00: 00 No 1mg gabapentin 300 mg capsule 2022-0 4-06 00:00: 00 No 1mg Dose Unknown 2022-0 4-06 00:00: 00 No Dose Unknown 2022-0 4-06 00:00: 00 No Dose Unknown 2022-0 4-06 00:00: 00 No Dose Unknown 2022-0 4-06 00:00: 00 No Dose Unknown 2022-0 4-06 00:00: 00 No Dose Unknown 2022-0 4-06 00:00: 00 No Dose Unknown 2022-0 4-06 00:00: 00 No Dose Unknown 2022-0 4-06 00:00: 00 No Dose Unknown 2022-0 4-06 00:00: 00 No Dose Unknown 2022-0 4-06 00:00: 00 No Dose Unknown 2022-0 4-06 00:00: 00 No Dose Unknown 2022-0 4-06 00:00: 00 No Dose Unknown 2022-0 4-06 00:00: 00 No Dose Unknown 2022-0 4-06 00:00: 00 No Dose Unknown 2022-0 4-04 00:00: 00 No Dose Unknown 2022-0 4-04 00:00: 00 No Dose Unknown 2022-0 4-04 00:00: 00 No Dose Unknown 2022-0 3-31 00:00: 00 No Dose Unknown 2022-0 3-17 00:00: 00 No Dose Unknown 2022-0 3-17 00:00: 00 No Dose Unknown 2022-0 3-17 00:00: 00 No Dose Unknown 2022-0 3-17 00:00: 00 No Dose Unknown 2022-0 3-17 00:00: 00 No Dose Unknown 2022-0 3-17 00:00: 00 No Dose Unknown 2022-0 3-17 00:00: 00 No Dose Unknown 2022-0 3-17 00:00: 00 No Dose Unknown 2022-0 3-17 00:00: 00 No Dose Unknown 2022-0 3-17 00:00: 00 No Dose Unknown 2022-0 3-17 00:00: 00 No Dose Unknown 2022-0 3-17 00:00: 00 No Dose Unknown 2022-0 3-17 00:00: 00 No Dose Unknown 2022-0 3-17 00:00: 00 No Dose Unknown 2022-0 3-17 00:00: 00 No Dose Unknown 2022-0 3-17 00:00: 00 No Dose Unknown 2022-0 3-17 00:00: 00 No Dose Unknown 2022-0 3-17 00:00: 00 No Dose Unknown 2022-0 3-17 00:00: 00 No Dose Unknown 2022-0 3-17 00:00: 00 No Dose Unknown 2022-0 3-17 00:00: 00 No Dose Unknown 2022-0 3-17 00:00: 00 No Dose Unknown 2022-0 3-17 00:00: 00 No Dose Unknown 2022-0 3-17 00:00: 00 No Dose Unknown 2022-0 3-17 00:00: 00 No Dose Unknown 2022-0 3-17 00:00: 00 No Dose Unknown 2022-0 3-17 00:00: 00 No Dose Unknown 2022-0 3-17 00:00: 00 No Dose Unknown 2022-0 3-17 00:00: 00 No Dose Unknown 2022-0 3-17 00:00: 00 No Dose Unknown 2022-0 3-17 00:00: 00 No Dose Unknown 2022-0 3-17 00:00: 00 No Dose Unknown 2022-0 3-17 00:00: 00 No Dose Unknown 2022-0 3-17 00:00: 00 No Dose Unknown 2022-0 3-17 00:00: 00 No Dose Unknown 2022-0 3-17 00:00: 00 No Dose Unknown 2022-0 3-17 00:00: 00 No Dose Unknown 2022-0 3-17 00:00: 00 No Dose Unknown 2022-0 3-17 00:00: 00 No Dose Unknown 2022-0 3-17 00:00: 00 No Dose Unknown 2022-0 3-17 00:00: 00 No Dose Unknown 2022-0 3-17 00:00: 00 No Dose Unknown 2022-0 3-17 00:00: 00 No Dose Unknown 2022-0 3-17 00:00: 00 No Dose Unknown 2022-0 3-17 00:00: 00 No Dose Unknown 2022-0 3-17 00:00: 00 No Dose Unknown 2022-0 3-17 00:00: 00 No Dose Unknown 2022-0 3-17 00:00: 00 No Dose Unknown 2022-0 3-17 00:00: 00 No Dose Unknown 2022-0 3-17 00:00: 00 No Dose Unknown 2022-0 3-17 00:00: 00 No Dose Unknown 2022-0 3-17 00:00: 00 No Dose Unknown 2022-0 3-17 00:00: 00 No Dose Unknown 2022-0 3-17 00:00: 00 No Dose Unknown 2022-0 3-17 00:00: 00 No Dose Unknown 2022-0 3-17 00:00: 00 No Dose Unknown 2022-0 3-17 00:00: 00 No Dose Unknown 2022-0 3-17 00:00: 00 No Dose Unknown 2022-0 3-17 00:00: 00 No Dose Unknown 2022-0 3-17 00:00: 00 No Dose Unknown 2022-0 3-17 00:00: 00 No Dose Unknown 2022-0 3-17 00:00: 00 No Dose Unknown 2022-0 3-17 00:00: 00 No Dose Unknown 2022-0 3-14 00:00: 00 No Dose Unknown 2022-0 3-14 00:00: 00 No Dose Unknown 2022-0 3-14 00:00: 00 No Dose Unknown 2022-0 3-14 00:00: 00 No Dose Unknown 2022-0 3-14 00:00: 00 No Dose Unknown 2022-0 3-14 00:00: 00 No Dose Unknown 2022-0 3-14 00:00: 00 No Dose Unknown 2022-0 3-14 00:00: 00 No Dose Unknown 2022-0 3-14 00:00: 00 No Dose Unknown 2022-0 3-14 00:00: 00 No Dose Unknown 2022-0 3-14 00:00: 00 No Dose Unknown 2022-0 3-14 00:00: 00 No Dose Unknown 2022-0 3-14 00:00: 00 No Dose Unknown 2022-0 3-14 00:00: 00 No Dose Unknown 2022-0 3-14 00:00: 00 No Dose Unknown 2022-0 3-14 00:00: 00 No Dose Unknown 2022-0 3-14 00:00: 00 No Dose Unknown 2022-0 3-14 00:00: 00 No Dose Unknown 2022-0 3-14 00:00: 00 No Dose Unknown 2022-0 3-14 00:00: 00 No Dose Unknown 2022-0 3-14 00:00: 00 No Dose Unknown 2022-0 3-14 00:00: 00 No Dose Unknown 2022-0 3-14 00:00: 00 No Dose Unknown 2022-0 3-14 00:00: 00 No Dose Unknown 2022-0 3-14 00:00: 00 No Dose Unknown 2022-0 3-14 00:00: 00 No Dose Unknown 2022-0 3-14 00:00: 00 No Dose Unknown 2022-0 3-14 00:00: 00 No Dose Unknown 2022-0 3-14 00:00: 00 No Dose Unknown 2022-0 3-14 00:00: 00 No Dose Unknown 2022-0 3-14 00:00: 00 No Dose Unknown 2022-0 3-14 00:00: 00 No Dose Unknown 2022-0 3-14 00:00: 00 No Dose Unknown 2022-0 3-14 00:00: 00 No Dose Unknown 2022-0 3-14 00:00: 00 No Dose Unknown 2022-0 3-14 00:00: 00 No Dose Unknown 2022-0 3-14 00:00: 00 No Dose Unknown 2022-0 3-14 00:00: 00 No Dose Unknown 2022-0 3-14 00:00: 00 No Dose Unknown 2022-0 3-14 00:00: 00 No Dose Unknown 2022-0 3-14 00:00: 00 No Dose Unknown 2022-0 3-14 00:00: 00 No Dose Unknown 2022-0 3-14 00:00: 00 No Dose Unknown 2022-0 3-14 00:00: 00 No Dose Unknown 2022-0 3-14 00:00: 00 No Dose Unknown 2022-0 3-14 00:00: 00 No Dose Unknown 2022-0 3-14 00:00: 00 No Dose Unknown 2022-0 3-14 00:00: 00 No Dose Unknown 2022-0 3-14 00:00: 00 No Dose Unknown 2022-0 3-14 00:00: 00 No Dose Unknown 2022-0 3-14 00:00: 00 No Dose Unknown 2022-0 3-14 00:00: 00 No Dose Unknown 2022-0 3-14 00:00: 00 No Dose Unknown 2022-0 3-14 00:00: 00 No Dose Unknown 2022-0 3-14 00:00: 00 No Dose Unknown 2022-0 3-14 00:00: 00 No Dose Unknown 2022-0 3-14 00:00: 00 No Dose Unknown 2022-0 3-14 00:00: 00 No Dose Unknown 2022-0 3-14 00:00: 00 No Dose Unknown 2022-0 3-14 00:00: 00 No Dose Unknown 2022-0 3-14 00:00: 00 No Dose Unknown 2022-0 3-14 00:00: 00 No Dose Unknown 2022-0 3-14 00:00: 00 No Dose Unknown 2022-0 3-14 00:00: 00 No Dose Unknown 2022-0 3-14 00:00: 00 No Dose Unknown 2022-0 3-14 00:00: 00 No Dose Unknown 2022-0 3-14 00:00: 00 No Dose Unknown 2022-0 3-14 00:00: 00 No Dose Unknown 2022-0 3-14 00:00: 00 No Dose Unknown 2022-0 3-14 00:00: 00 No Dose Unknown 2022-0 3-14 00:00: 00 No Dose Unknown 2022-0 3-14 00:00: 00 No Dose Unknown 2022-0 3-14 00:00: 00 No Dose Unknown 2022-0 3-14 00:00: 00 No Dose Unknown 2022-0 3-14 00:00: 00 No Dose Unknown 2022-0 3-14 00:00: 00 No Dose Unknown 2022-0 3-14 00:00: 00 No Dose Unknown 2022-0 3-14 00:00: 00 No Dose Unknown 2022-0 3-14 00:00: 00 No Dose Unknown 2022-0 3-14 00:00: 00 No Dose Unknown 2022-0 3-14 00:00: 00 No Dose Unknown 2022-0 3-14 00:00: 00 No Dose Unknown 2022-0 3-14 00:00: 00 No Dose Unknown 2022-0 3-14 00:00: 00 No Dose Unknown 2022-0 3-14 00:00: 00 No Dose Unknown 2022-0 3-14 00:00: 00 No Dose Unknown 2022-0 3-14 00:00: 00 No Dose Unknown 2022-0 3-14 00:00: 00 No Dose Unknown 2022-0 3-14 00:00: 00 No Dose Unknown 2022-0 3-14 00:00: 00 No Dose Unknown 2022-0 3-14 00:00: 00 No Dose Unknown 2022-0 3-14 00:00: 00 No Dose Unknown 2022-0 3-14 00:00: 00 No Dose Unknown 2022-0 3-14 00:00: 00 No Dose Unknown 2022-0 3-14 00:00: 00 No Dose Unknown 2022-0 3-14 00:00: 00 No Dose Unknown 2022-0 3-14 00:00: 00 No Dose Unknown 2022-0 3-14 00:00: 00 No Dose Unknown 2022-0 3-14 00:00: 00 No Dose Unknown 2022-0 3-14 00:00: 00 No Dose Unknown 2022-0 3-11 00:00: 00 No Dose Unknown 2022-0 3-11 00:00: 00 No Dose Unknown 2022-0 3-11 00:00: 00 No Dose Unknown 2022-0 3-11 00:00: 00 No Dose Unknown 2022-0 3-11 00:00: 00 No Dose Unknown 2022-0 3-11 00:00: 00 No Dose Unknown 2022-0 3-11 00:00: 00 No Dose Unknown 2022-0 3-11 00:00: 00 No Dose Unknown 2022-0 3-11 00:00: 00 No Dose Unknown 2022-0 3-11 00:00: 00 No Dose Unknown 2022-0 3-11 00:00: 00 No Dose Unknown 2022-0 3-11 00:00: 00 No Dose Unknown 2022-0 3-11 00:00: 00 No Dose Unknown 2022-0 3-11 00:00: 00 No Dose Unknown 2022-0 3-11 00:00: 00 No Dose Unknown 2022-0 3-11 00:00: 00 No Dose Unknown 2022-0 3-11 00:00: 00 No Dose Unknown 2022-0 3-11 00:00: 00 No Dose Unknown 2022-0 3-11 00:00: 00 No Dose Unknown 2022-0 3-11 00:00: 00 No Dose Unknown 2022-0 3-10 00:00: 00 No Dose Unknown 2022-0 3-10 00:00: 00 No Dose Unknown 2022-0 3-10 00:00: 00 No Dose Unknown 2022-0 3-10 00:00: 00 No Dose Unknown 2022-0 3-10 00:00: 00 No Dose Unknown 2022-0 3-10 00:00: 00 No Dose Unknown 2022-0 3-10 00:00: 00 No Dose Unknown 2022-0 3-10 00:00: 00 No Dose Unknown 2022-0 3-10 00:00: 00 No Dose Unknown 2022-0 3-10 00:00: 00 No Dose Unknown 2022-0 2-28 00:00: 00 No Dose Unknown 2022-0 2-28 00:00: 00 No Dose Unknown 2022-0 2-28 00:00: 00 No Dose Unknown 2022-0 2-14 00:00: 00 No Dose Unknown 2022-0 1-26 00:00: 00 No Dose Unknown 2022-0 1-26 00:00: 00 No bupropion HCl 150 mg tablet,12 hr sustained-r elease(smok ing deterrent) 11-02 00:00: 00 No 1mg varenicline 0.5 mg tablet 11-02 00:00: 00 No 12mg Dose Unknown - 00:00: 00 No Dose Unknown 10-20 00:00: 00 No Dose Unknown 10-16 00:00: 00 No Dose Unknown 10-16 00:00: 00 No Dose Unknown 10-16 00:00: 00 No Dose Unknown 10-16 00:00: 00 No traZODone 150 mg tablet 2020-10 14:57: 27 Yes 150mg Take 150 mg by mouth at bedtime. [facility] gabapentin 600 mg tablet 04-02 00:00: 00 Yes [id number] TAKE 2 TABLETS PO TID [facility] Vital Signs Vital Name Observation Time Observation Value Comments S ource BP Systolic 2022-10-03 15:35:00 142 mm[Hg] BP Diastolic 2022-10-03 15:35:00 84 mm[Hg] Weight Measured 2022-10-03 15:35:00 156.00 pounds Height Measured 2022-10-03 15:35:00 59.00 inches Body Temperature 2022-10-03 15:35:00 98.20 degrees Heart Rate 2022-10-03 15:35:00 80.00 /min Respiratory Rate 2022-10-03 15:35:00 18.00 /min BP Systolic 2022-09-13 15:17:00 143 mm[Hg] BP Diastolic 2022-09-13 15:17:00 87 mm[Hg] Weight Measured 2022-09-13 15:17:00 160.00 pounds Height Measured 2022-09-13 15:17:00 59.00 inches Body Temperature 2022-09-13 15:17:00 98.40 degrees Heart Rate 2022-09-13 15:17:00 92.00 /min Respiratory Rate 2022-09-13 15:17:00 17.00 /min BP Systolic 2022-08-15 15:04:00 150 mm[Hg] BP Diastolic 2022-08-15 15:04:00 89 mm[Hg] Weight Measured 2022-08-15 15:04:00 160.40 pounds Height Measured 2022-08-15 15:04:00 59.00 inches Body Temperature 2022-08-15 15:04:00 98.20 degrees Heart Rate 2022-08-15 15:04:00 87.00 /min Respiratory Rate 2022-08-15 15:04:00 18.00 /min BP Systolic 2022-07-17 14:25:00 BP Diastolic 2022-07-17 14:25:00 Weight Measured 2022-07-17 14:25:00 160.00 pounds Height Measured 2022-07-17 14:25:00 59.00 inches Body Temperature 2022-07-17 14:25:00 Heart Rate 2022-07-17 14:25:00 Respiratory Rate 2022-07-17 14:25:00 BP Systolic 2022-06-14 14:54:00 139 mm[Hg] BP Diastolic 2022-06-14 14:54:00 83 mm[Hg] Weight Measured 2022-06-14 14:54:00 160.00 pounds Height Measured 2022-06-14 14:54:00 59.00 inches Body Temperature 2022-06-14 14:54:00 Heart Rate 2022-06-14 14:54:00 85.00 /min Respiratory Rate 2022-06-14 14:54:00 18.00 /min BP Systolic 2022-04-19 15:04:00 132 mm[Hg] BP Diastolic 2022-04-19 15:04:00 85 mm[Hg] Weight Measured 2022-04-19 15:04:00 157.00 pounds Height Measured 2022-04-19 15:04:00 59.00 inches Body Temperature 2022-04-19 15:04:00 98.20 degrees Heart Rate 2022-04-19 15:04:00 97.00 /min Respiratory Rate 2022-04-19 15:04:00 18.00 /min BP Systolic 2022-03-22 15:06:00 130 mm[Hg] BP Diastolic 2022-03-22 15:06:00 89 mm[Hg] Weight Measured 2022-03-22 15:06:00 152.20 pounds Height Measured 2022-03-22 15:06:00 59.00 inches Body Temperature 2022-03-22 15:06:00 98.30 degrees Heart Rate 2022-03-22 15:06:00 96.00 /min Respiratory Rate 2022-03-22 15:06:00 18.00 /min BP Systolic 2022-02-21 14:34:00 143 mm[Hg] BP Diastolic 2022-02-21 14:34:00 87 mm[Hg] Weight Measured 2022-02-21 14:34:00 152.40 pounds Height Measured 2022-02-21 14:34:00 59.00 inches Body Temperature 2022-02-21 14:34:00 98.40 degrees Heart Rate 2022-02-21 14:34:00 84.00 /min Respiratory Rate 2022-02-21 14:34:00 17.00 /min BP Systolic 2022-01-17 15:17:00 127 mm[Hg] BP Diastolic 2022-01-17 15:17:00 83 mm[Hg] Weight Measured 2022-01-17 15:17:00 148.00 pounds Height Measured 2022-01-17 15:17:00 59.00 inches Body Temperature 2022-01-17 15:17:00 98.10 degrees Heart Rate 2022-01-17 15:17:00 92.00 /min Respiratory Rate 2022-01-17 15:17:00 18.00 /min BP Systolic 2022-01-11 15:50:00 156 mm[Hg] BP Diastolic 2022-01-11 15:50:00 98 mm[Hg] Weight Measured 2022-01-11 15:50:00 147.60 pounds Height Measured 2022-01-11 15:50:00 59.00 inches Body Temperature 2022-01-11 15:50:00 98.20 degrees Heart Rate 2022-01-11 15:50:00 89.00 /min Respiratory Rate 2022-01-11 15:50:00 18.00 /min Plan of Care Planned Activity Planned Date Details Comments Source Goal Plan of Care Note [code = 75131-0] Goal Plan of Care Note [code = 79856-7] Goal Plan of Care Note [code = 63371-0] Goal Plan of Care Note [code = 39792-8] Goal Plan of Care Note [code = 48531-8] Goal Plan of Care Note [code = 72670-3] Goal Plan of Care Note [code = 05176-4] Goal Plan of Care Note [code = 36311-5] Goal Plan of Care Note [code = 44585-3] Goal Plan of Care Note [code = 88317-7] Goal Plan of Care Note [code = 40921-1] Goal Plan of Care Note [code = 20464-4] Goal Plan of Care Note [code = 64842-9] Goal Plan of Care Note [code = 00762-5] Goal Plan of Care Note [code = 71612-1] Goal Plan of Care Note [code = 67422-5] Goal Plan of Care Note [code = 88825-8] Encounters Start Date/Time End Date/Time Encounter Type Admission Type Attending [facility] Facility Care Department Encounter ID Source 2023-12-10 14:35:43 2023-12-10 14:35:43 Outpatient SFA SFA [id number] Zafar Ellison 2023-10-31 15:23:42 2023-10-31 15:23:42 Outpatient SFA SFA [id number] Zafar Ellison 2023-10-10 13:56:47 2023-10-10 13:56:47 Outpatient SFA SFA [id number] Zafar Ellison 2023-09-10 14:59:35 2023-09-10 14:59:35 Outpatient SFA SFA [id number] Zafar Ellison 2023-08-02 15:27:27 2023-08-02 15:27:27 Outpatient SFA SFA [id number] Zafar Ellison 2023-07-15 15:01:43 2023-07-15 15:01:43 Outpatient SFA SFA [id number] Zafar Ellison 2023-05-30 15:03:48 2023-05-30 15:03:48 Outpatient SFA SFA [id number] Zafar Ellison 2023-05-17 14:50:52 2023-05-17 14:50:52 Outpatient SFA SFA [id number] Zafar Ellison 2023-05-09 15:11:38 2023-05-09 15:11:38 Outpatient SFA SFA [id number] Zafar Ellison 2023-05-02 15:12:29 2023-05-02 15:12:29 Outpatient SFA SFA [id number] Zafar Ellison 2023-05-01 15:07:56 2023-05-01 15:07:56 Outpatient SFA SFA [id number] Zafar Ellison 2023-04-18 14:58:03 2023-04-18 14:58:03 Outpatient SFA SFA [id number] Zafar Ellison 2023-01-31 15:26:42 2023-01-31 15:26:42 Outpatient SFA [id number] [id number] Zafar Ellison 2022-12-31 12:13:38 2022-12-31 12:13:38 Outpatient SFA SFA [id number] Zafar Ellison 2022-12-06 14:52:05 2022-12-06 14:52:05 Outpatient SFA SFA [id number] Zafar Ellison 2022-11-12 15:06:47 2022-11-12 15:06:47 Outpatient SFA SFA [id number] Zafar Ellison 2022-11-06 15:17:33 2022-11-06 15:17:33 Outpatient SFA SFA [id number] Zafar Ellison 2022-10-10 09:00:00 2022-10-10 09:00:00 Outpatient R AKINSIPE, RENITA [facility] [id number] [facility] 2022-10-10 08:30:00 2022-10-10 08:30:00 Outpatient R [facility] [id number] [facility] 2022-10-03 15:20:11 2022-10-03 15:20:11 Outpatient SFA SFA [id number] Zafar Ellison 2022-10-03 00:00:00 2022-10-03 00:00:00 Outpatient Visit [id number] 2022-07-17 14:49:41 2022-07-17 14:49:[address] [facility] [id number] Zafar Ellison 2021-10-23 06:54:41 2021-10-23 23:59:00 Outpatient R RENITA GOMEZ [facility] [id number] [facility] 2021-10-23 06:54:41 2021-10-23 23:59:00 Hospital Encounter Renita Gomez [facility] .[id number] [facility] 2021-10-23 00:00:00 2021-10-23 23:59:00 Outpatient R RENITA GOMEZ [facility] [id number] [facility] 2021-10-23 00:00:00 2021-10-23 23:59:00 Outpatient R RENITA GOMEZ [facility] [id number] [facility] 2021-10-23 06:54:41 2021-10-23 06:54:41 Outpatient R RENITA GOMEZ [facility] [id number] [facility] 2021-10-23 00:00:00 2021-10-23 00:00:00 Telephone Renita Gomez [employer] 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 [facility] .2.840.114 350.1.13.10 4.2.7.2.686 [id number] [facility] 2021-10-09 15:30:00 2021-10-09 15:49:31 Outpatient R RENITA GOMEZ [facility] [id number] [facility] 2021-10-09 15:30:00 2021-10-09 15:49:31 Office Visit Renita Gomez [place] SOFTWARE DEVELOPMENT COORDINATOR [facility] 1.2.840.114 350.1.13.10 4.2.7.2.686 [id number] [facility] 2021-10-09 14:30:00 2021-10-09 15:44:25 Outpatient R RENITA GOMEZ [facility] [id number] [facility] 2021-10-09 14:30:00 2021-10-09 15:44:25 Office Visit Renita Gomez [facility] SOFTWARE DEVELOPMENT COORDINATOR [facility]ILD [facility] 1..840.114 350.1.13.10 4.2.7.2.686 [id number] [facility] 2021-10-09 15:30:00 2021-10-09 15:30:00 Outpatient R RENITA GOMEZ [facility] [id number] [facility] 2021-10-09 15:30:00 2021-10-09 15:30:00 Outpatient R RENITA GOMEZ [facility] [id number] [facility] 2021-10-09 09:30:00 2021-10-09 09:30:00 Outpatient R RENITA GOMEZ [facility] [id number] [facility] 2021-10-09 00:00:00 2021-10-09 00:00:00 Orders Only Doctor Unassigned, [place] [facility] 1..840.114 350.1.13.10 4.2.7.2.686 [id number] [facility] 2021-02-10 13:10:00 2021-02-10 13:10:00 Outpatient R GUNNAR AMOR [facility] [id number] [facility] 2021-02-10 13:10:00 2021-02-10 12:48:38 Outpatient R GUNNAR AMOR [facility] [id number] [facility] 2021-01-13 10:40:00 2021-01-13 10:40:00 Outpatient GUNNAR CRESPO [facility] [id number] [facility] Results Test Description Test Time Test Comments Results Result Co mments Source HEMOGLOBIN [id number] 02:04:53* Test Item Value Reference Range Interpretation Comme nts HEMOGLOBIN A1c (test code = 32730) 6.2 % 4.2-5.6 H [employer] GUIDELINES FOR HGB A1C: PREDIABETES/INCREASED RISK . . . . . . . 5.7-6.4% DIAGNOSIS OF DIABETES . . . . . . . . . >=6.5% WITH CONFIRMATION OR APPROPRIATE SYMPTOMS NOTE: ASSAY MAY BE AFFECTED BY HEMOGLOBINOPATHIES (SICKLE CELL ANEMIA, S-C DISEASE, OTHERS) OR ARTIFICIALLY LOWERED BY DECREASED RED CELL SURVIVAL (HEMOLYTIC ANEMIAS, BLOOD LOSS, ETC.). CONSIDER ALTERNATE TESTING OR LABORATORY CONSULTATION. UNLESS OTHERWISE INDICATED, ALL TESTING PERFORMED AT [facility] [address] [place] [address] [employer] HANDLER: RNEATO TAYLOR M.D. [place] NUMBER [id number] [facility] [place]. [id number] COMPREHENSIVE METABOLIC [id number] 09:46:14* Test Item Value Reference Range Interpretation Comme nts GLUCOSE (test code = 2217) 112 MG/DL 70-99 H BUN (test code = 2208) 11 MG/DL 6-20 CREATININE (test code = 2214) 0.60 MG/DL 0.60-1.30 eGFR (2020 CKD-EPI) (test code = 63807) 104 ML/MIN/1.73 >60 CALC BUN/CREAT (test code = 2235) 18 RATIO 6-28 SODIUM (test code = 2231) 142 MEQ/L 133-146 POTASSIUM (test code = 2228) 4.4 MEQ/L 3.5-5.4 CHLORIDE (test code = 2215) 104 MEQ/L 95-107 CARBON DIOXIDE (test code = 2206) 23 MEQ/L 19-31 CALCIUM (test code = 2209) 9.9 MG/DL 8.5-10.5 PROTEIN, TOTAL (test code = 222) 7.2 G/DL 6.1-8.3 ALBUMIN (test code = 2201) 5.0 G/DL 3.5-5.2 CALC GLOBULIN (test code = 2240) 2.2 G/DL 1.9-3.7 CALC A/G RATIO (test code = 2234) 2.3 RATIO 1.0-2.6 BILIRUBIN, TOTAL (test code = 2207) 0.3 MG/DL See_Comment [Automated me ssage] The system which generated this result transmitted reference range: <=1.2. The reference range was not used to interpret this result as normal/abnormal. ALKALINE PHOSPHATASE (test code = 2204) 144 U/L 40-136 H AST (test code = 2218) 28 U/L 9-40 ALT (test code = 2219) 40 U/L 5-40 LIPID [id number] 09:46:14* Test Item Value Reference Range Interpretation Comme nts CHOLESTEROL (test code = 2210) 159 MG/DL <200 TRIGLYCERIDES (test code = 2232) 107 MG/DL <150 HDL CHOLESTEROL (test code = 2220) 50 MG/DL >39 CALC LDL CHOL (test code = 2237) 89 MG/DL <100 NOTE: CALCULATED LDL IS BASED ON TRE-BOLDEN METHOD WHICHINCLUDES ADJUSTABLE TRIGLYCERIDE:VLDL CHOLESTEROL RATIO.THIS FACTOR VARIES BY MEASURED TRIGLYCERIDE AND NON-HDLCHOLESTEROL CONCENTRATIONS WITH INCREASED CALCULATED LDL SEENIN HIGHER TRIGLYCERIDE OR LOWER NON-HDL SPECIMENS. FOR MOREINFORMATION, SEE CLIENT ANNOUNCEMENT AT [email or web address] /CalcLDL-C RISK RATIO LDL/HDL (test code = 2238) 1.78 RATIO <3.22 [facility] has i mportant pathology staff changes effective 12/12/2022. New pathology staff will provide uninterrupted, excellent patient care and clinical consultation. See URL: [email or web address]. UNLESS OTHERWISE INDICATED, ALL TESTING PERFORMED AT [facility] [address] [place] [address], [place] [address] [employer] HANDLER: RENATO TAYLOR M.D. IA NUMBER [id number] [facility] [place]. [id number] HEMOGLOBIN [id number] 05:43:05* Test Item Value Reference Range Interpretation Comme nts HEMOGLOBIN A1c (test code = 11051) 8.1 % 4.2-5.6 H [employer] GUIDELINES FOR HGB A1C: PREDIABETES/INCREASED RISK . . . . . . . 5.7-6.4% DIAGNOSIS OF DIABETES . . . . . . . . . >=6.5% WITH CONFIRMATION OR APPROPRIATE SYMPTOMS NOTE: ASSAY MAY BE AFFECTED BY HEMOGLOBINOPATHIES (SICKLE CELL ANEMIA, S-C DISEASE, OTHERS) OR ARTIFICIALLY LOWERED BY DECREASED RED CELL SURVIVAL (HEMOLYTIC ANEMIAS, BLOOD LOSS, ETC.). CONSIDER ALTERNATE TESTING OR LABORATORY CONSULTATION. LIPID [id number] 05:37:19* Test Item Value Reference Range Interpretation Comme nts CHOLESTEROL (test code = 2210) 322 MG/DL <200 H TRIGLYCERIDES (test code = 2232) 234 MG/DL <150 H HDL CHOLESTEROL (test code = 2220) 48 MG/DL >39 CALC LDL CHOL (test code = 2237) 231 MG/DL <100 H NOTE: CALCULATED LDL IS BASED ON TRE-BOLDEN METHOD WHICHINCLUDES ADJUSTABLE TRIGLYCERIDE:VLDL CHOLESTEROL RATIO.THIS FACTOR VARIES BY MEASURED TRIGLYCERIDE AND NON-HDLCHOLESTEROL CONCENTRATIONS WITH INCREASED CALCULATED LDL SEENIN HIGHER TRIGLYCERIDE OR LOWER NON-HDL SPECIMENS. FOR MOREINFORMATION, SEE CLIENT ANNOUNCEMENT AT [email or web address] /CalcLDL-C RISK RATIO LDL/HDL (test code = 2238) 4.81 RATIO <3.22 H HEMOGLOBIN [id number] 02:50:43* Test Item Value Reference Range Interpretation Comme nts HEMOGLOBIN A1c (test code = 06349) 11.0 % 4.2-5.6 H [employer] GUIDELINES FOR HGB A1C: PREDIABETES/INCREASED RISK . . . . . . . 5.7-6.4% DIAGNOSIS OF DIABETES . . . . . . . . . >=6.5% WITH CONFIRMATION OR APPROPRIATE SYMPTOMS NOTE: ASSAY MAY BE AFFECTED BY HEMOGLOBINOPATHIES (SICKLE CELL ANEMIA, S-C DISEASE, OTHERS) OR ARTIFICIALLY LOWERED BY DECREASED RED CELL SURVIVAL (HEMOLYTIC ANEMIAS, BLOOD LOSS, ETC.). CONSIDER ALTERNATE TESTING OR LABORATORY CONSULTATION. UNLESS OTHERWISE INDICATED, ALL TESTING PERFORMED [facility] [address] [place] [id number] [employer] HANDLER: CHIDI SMITH M.D. CLIA NUMBER [id number] [facility] [place]. [id number] FREE [id number] 06:15:03* Test Item Value Reference Range Interpretation Comme nts FREE T3 (test code = 4273) 3.8 PG/ML 2.2-4.2 FREE T4 (THYROXINE)2021-10-17 06:15:03* Test Item Value Reference Range Interpretation Comme [facility] FREE T4 (THYROXINE) (test code = 2823) 1.13 NG/DL 0.80-1.90 UNLESS OTHERWISE INDICATED, ALL TESTING PERFORMED [facility] [address] [place] [address] [employer] MAT[employer] HANDLER: CHIDI SMITH M.D. IA NUMBER [id number] [facility] [place]. [id number] HEMOGLOBIN [id number] 04:18:46* Test Item Value Reference Range Interpretation Comme [facility] HEMOGLOBIN A1c (test code = 38858) 6.3 % 4.2-5.6 H VITAMIN D, 25 [id number] 03:36:18* Test Item Value Reference Range Interpretation Comme [facility] VITAMIN D, 25 OH (test code = 4958) 16 NG/ML SEE BELOW L NOTE: 25-HYDR OXYVITAMIN D ASSAY INCLUDES 25-HYDROXYVITAMIN D2 AND D3. METHODOLOGY IS CHEMILUMINESCENT IMMUNOASSAY. INTERPRETIVE RANGES PEDIATRIC (<17 YEARS) . . . . . . . . . . . NG/ML 20-100ADULT: INSUFFICIENT . . . . . . . . . . . . . . NG/ML <20 SUBOPTIMAL . . . . . . . . . . . . . . . NG/ML 20-29 OPTIMAL . . . . . . . . . . . . . . . . . NG/ML 30-100 LIPID [id number] 03:27:32* Test Item Value Reference Range Interpretation Comme nts CHOLESTEROL (test code = 2210) 288 MG/DL <200 H TRIGLYCERIDES (test code = 2232) 328 MG/DL <150 H HDL CHOLESTEROL (test code = 2220) 48 MG/DL >39 CALC LDL CHOL (test code = 2237) 184 MG/DL <100 H NOTE: CALCULATED LDL IS BASED ON TRE-BOLDEN METHOD WHICHINCLUDES ADJUSTABLE TRIGLYCERIDE:VLDL CHOLESTEROL RATIO.THIS FACTOR VARIES BY MEASURED TRIGLYCERIDE AND NON-HDLCHOLESTEROL CONCENTRATIONS WITH INCREASED CALCULATED LDL SEENIN HIGHER TRIGLYCERIDE OR LOWER NON-HDL SPECIMENS. FOR MOREINFORMATION, SEE CLIENT ANNOUNCEMENT AT [email or web address] RISK RATIO LDL/HDL (test code = 2238) 3.83 RATIO <3.22 H COMPREHENSIVE METABOLIC [id number] 03:27:32* Test Item Value Reference Range Interpretation Comme nts GLUCOSE (test code = 2217) 113 MG/DL 70-99 H BUN (test code = 2208) 11 MG/DL 6-20 CREATININE (test code = 2214) 0.65 MG/DL 0.60-1.30 EFFECTIVE 09/25/2021, [facility] HAS IMPLEMENTED THE NKF-ASN RECOMMENDED KD-EPI EGFR REFIT CALCULATION THAT DOES NOT INCLUDE A COEFFICIENT FORRACE. FOR MORE INFORMATION, SEE ANNOUNCEMENT [email or web address] eGFR (2020 CKD-EPI) (test code = 22560) 103 ML/MIN/1.73 >60 CALC BUN/CREAT (test code = 2235) 17 RATIO 6-28 SODIUM (test code = 223) 142 MEQ/L 133-146 POTASSIUM (test code = 2228) 4.1 MEQ/L 3.5-5.4 CHLORIDE (test code = 2215) 103 MEQ/L 95-107 CARBON DIOXIDE (test code = 2206) 25 MEQ/L 19-31 CALCIUM (test code = 2209) 9.9 MG/DL 8.5-10.5 PROTEIN, TOTAL (test code = 2229) 7.4 G/DL 6.1-8.3 ALBUMIN (test code = 2201) 4.9 G/DL 3.5-5.2 CALC GLOBULIN (test code = 2240) 2.5 G/DL 1.9-3.7 CALC A/G RATIO (test code = 2234) 2.0 RATIO 1.0-2.6 BILIRUBIN, TOTAL (test code = 2207) 0.3 MG/DL See_Comment [Automated me ssage] The system which generated this result transmitted reference range: <=1.2. The reference range was not used to interpret this result as normal/abnormal. ALKALINE PHOSPHATASE (test code = 2204) 147 U/L 40-136 H AST (test code = 2218) 37 U/L 9-40 ALT (test code = 2219) 51 U/L 5-40 H CBC W/AUTO DIFF WITH [id number] 02:57:35* Test Item Value Reference Range Interpretation Comme nts WBC (test code = 1001) 11.1 K/UL 3.5-11.0 H RBC (test code = 1002) 4.65 M/UL 3.80-5.40 HEMOGLOBIN (test code = 1003) 14.2 G/DL 11.5-15.5 HEMATOCRIT (test code = 1004) 41.9 % 34.0-45.0 MCV (test code = 1005) 90.1 fL 80.0-99.0 MCH (test code = 1006) 30.5 PG 25.0-33.0 MCHC (test code = 1007) 33.9 G/DL 31.0-36.0 RDW (test code = 1038) 12.9 % 11.5-15.0 NEUTROPHILS (test code = 1008) 70.0 % LYMPHOCYTES (test code = 1010) 21.4 % MONOCYTES (test code = 1011) 5.8 % EOSINOPHILS (test code = 1012) 1.7 % BASOPHILS (test code = 1013) 0.7 % IMMATURE GRANYLOCYTES (test code = 1036) 0.4 % NUCLEATED RBCS (test code = 1065) 0.0 /100 WBC'S See_Comment [Automated [employer] ge] The system which generated this result transmitted reference range: 0.0. The reference range was not used to interpret this result as normal/abnormal. PLATELET COUNT (test code = 1015) 333 K/UL 130-400 ABSOLUTE NEUTROPHILS (test code = 1066) 7.76 K/UL 1.50-7.50 H ABSOLUTE LYMPHOCYTES (test code = 1067) 2.37 K/UL 1.00-4.00 ABSOLUTE MONOCYTES (test code = 1068) 0.64 K/UL 0.20-1.00 ABSOLUTE EOSINOPHILS (test code = 1040) 0.19 K/UL 0.00-0.50 ABSOLUTE BASOPHILS (test code = 1069) 0.08 K/UL 0.00-0.20 ABS IMMATURE GRANULOCYTES (test code = 1020) 0.04 K/UL 0.00-0.10 ABS NUCLEATED RBCS (test code = 30805) 0.00 K/UL 0.00-0.11 LIPID [id number] 00:00:00* Test Item Value Reference Range Interpretation Comme nts CHOLESTEROL (test code = 2210) 288 MG/DL TRIGLYCERIDES (test code = 2232) 328 MG/DL HDL CHOLESTEROL (test code = 2220) 48 MG/DL CALC LDL CHOL (test code = 2237) 184 MG/DL RISK RATIO LDL/HDL (test cod e = 2238) 3.83 RATIO LIPID [id number] 00:00:00* Test Item Value Reference Range Interpretation Comme nts CHOLESTEROL (test code = 2210) 288 MG/DL TRIGLYCERIDES (test code = 2232) 328 MG/DL HDL CHOLESTEROL (test code = 2220) 48 MG/DL CALC LDL CHOL (test code = 2237) 184 MG/DL RISK RATIO LDL/HDL (test cod e = 2238) 3.83 RATIO CBC W/AUTO [id number] 00:00:00* Test Item Value Reference Range Interpretation Comme nts WBC (test code = 1001) 11.1 K/UL RBC (test code = 1002) 4.65 M/UL HEMOGLOBIN (test code = 1003) 14.2 G/DL HEMATOCRIT (test code = 1004) 41.9 % MCV (test code = 1005) 90.1 fL MCH (test code = 1006) 30.5 PG MCHC (test code = 1007) 33.9 G/DL RDW (test code = 1038) 12.9 % NEUTROPHILS (test code = 1008) 70.0 % LYMPHOCYTES (test code = 1010) 21.4 % MONOCYTES (test code = 1011) 5.8 % EOSINOPHILS (test code = 1012) 1.7 % BASOPHILS (test code = 1013) 0.7 % IMMATURE GRANYLOCYTES (test code = 1036) 0.4 % NUCLEATED RBCS (test code = 1065) 0.0 /100WBC'S PLATELET COUNT (test code = 1015) 333 K/UL ABSOLUTE NEUTROPHILS (test c ode = 1066) 7.76 K/UL ABSOLUTE LYMPHOCYTES (test c ode = 1067) 2.37 K/UL ABSOLUTE MONOCYTES (test cod e = 1068) 0.64 K/UL ABSOLUTE EOSINOPHILS (test c ode = 1040) 0.19 K/UL ABSOLUTE BASOPHILS (test cod e = 1069) 0.08 K/UL ABS IMMATURE GRANULOCYTES (t est code = 1020) 0.04 K/UL ABS NUCLEATED RBCS (test cod e = 82813) 0.00 K/UL CBC W/AUTO [id number] 00:00:00* Test Item Value Reference Range Interpretation Comme nts WBC (test code = 1001) 11.1 K/UL RBC (test code = 1002) 4.65 M/UL HEMOGLOBIN (test code = 1003) 14.2 G/DL HEMATOCRIT (test code = 1004) 41.9 % MCV (test code = 1005) 90.1 fL MCH (test code = 1006) 30.5 PG MCHC (test code = 1007) 33.9 G/DL RDW (test code = 1038) 12.9 % NEUTROPHILS (test code = 1008) 70.0 % LYMPHOCYTES (test code = 1010) 21.4 % MONOCYTES (test code = 1011) 5.8 % EOSINOPHILS (test code = 1012) 1.7 % BASOPHILS (test code = 1013) 0.7 % IMMATURE GRANYLOCYTES (test code = 1036) 0.4 % NUCLEATED RBCS (test code = 1065) 0.0 /100WBC'S PLATELET COUNT (test code = 1015) 333 K/UL ABSOLUTE NEUTROPHILS (test c ode = 1066) 7.76 K/UL ABSOLUTE LYMPHOCYTES (test c ode = 1067) 2.37 K/UL ABSOLUTE MONOCYTES (test cod e = 1068) 0.64 K/UL ABSOLUTE EOSINOPHILS (test c ode = 1040) 0.19 K/UL ABSOLUTE BASOPHILS (test cod e = 1069) 0.08 K/UL ABS IMMATURE GRANULOCYTES (t est code = 1020) 0.04 K/UL ABS NUCLEATED RBCS (test cod e = 42500) 0.00 K/UL CBC W/AUTO [id number] 00:00:00* Test Item Value Reference Range Interpretation Comme nts WBC (test code = 1001) 11.1 K/UL RBC (test code = 1002) 4.65 M/UL HEMOGLOBIN (test code = 1003) 14.2 G/DL HEMATOCRIT (test code = 1004) 41.9 % MCV (test code = 1005) 90.1 fL MCH (test code = 1006) 30.5 PG MCHC (test code = 1007) 33.9 G/DL RDW (test code = 1038) 12.9 % NEUTROPHILS (test code = 1008) 70.0 % LYMPHOCYTES (test code = 1010) 21.4 % MONOCYTES (test code = 1011) 5.8 % EOSINOPHILS (test code = 1012) 1.7 % BASOPHILS (test code = 1013) 0.7 % IMMATURE GRANYLOCYTES (test code = 1036) 0.4 % NUCLEATED RBCS (test code = 1065) 0.0 /100WBC'S PLATELET COUNT (test code = 1015) 333 K/UL ABSOLUTE NEUTROPHILS (test c ode = 1066) 7.76 K/UL ABSOLUTE LYMPHOCYTES (test c ode = 1067) 2.37 K/UL ABSOLUTE MONOCYTES (test cod e = 1068) 0.64 K/UL ABSOLUTE EOSINOPHILS (test c ode = 1040) 0.19 K/UL ABSOLUTE BASOPHILS (test cod e = 1069) 0.08 K/UL ABS IMMATURE GRANULOCYTES (t est code = 1020) 0.04 K/UL ABS NUCLEATED RBCS (test cod e = 65574) 0.00 K/UL VITAMIN D, 25 [id number] 00:00:00* Test Item Value Reference Range Interpretation Comme nts VITAMIN D, 25 OH (test code = 4958) 16 NG/ML VITAMIN D, 25 [id number] 00:00:00* Test Item Value Reference Range Interpretation Comme nts VITAMIN D, 25 OH (test code = 4958) 16 NG/ML COMPREHENSIVE METABOLIC [id number] 00:00:00* Test Item Value Reference Range Interpretation Comme nts GLUCOSE (test code = 2217) 113 MG/DL BUN (test code = 2208) 11 MG/DL CREATININE (test code = 2214) 0.65 MG/DL eGFR (2020 CKD-EPI) (test code = 53677) 103 ML/MIN/1.73 CALC BUN/CREAT (test code = 2235) 17 RATIO SODIUM (test code = 2231) 142 MEQ/L POTASSIUM (test code = 2228) 4.1 MEQ/L CHLORIDE (test code = 2215) 103 MEQ/L CARBON DIOXIDE (test code = 2206) 25 MEQ/L CALCIUM (test code = 2209) 9.9 MG/DL PROTEIN, TOTAL (test code = 2229) 7.4 G/DL ALBUMIN (test code = 2201) 4.9 G/DL CALC GLOBULIN (test code = 2240) 2.5 G/DL CALC A/G RATIO (test code = 2234) 2.0 RATIO BILIRUBIN, TOTAL (test code = 2207) 0.3 MG/DL ALKALINE PHOSPHATASE (test code = 2204) 147 U/L AST (test code = 2218) 37 U/L ALT (test code = 2219) 51 U/L COMPREHENSIVE METABOLIC [id number] 00:00:00* Test Item Value Reference Range Interpretation Comme nts GLUCOSE (test code = 2217) 113 MG/DL BUN (test code = 2208) 11 MG/DL CREATININE (test code = 2214) 0.65 MG/DL eGFR (2020 CKD-EPI) (test code = 67408) 103 ML/MIN/1.73 CALC BUN/CREAT (test code = 2235) 17 RATIO SODIUM (test code = 2231) 142 MEQ/L POTASSIUM (test code = 2228) 4.1 MEQ/L CHLORIDE (test code = 2215) 103 MEQ/L CARBON DIOXIDE (test code = 2206) 25 MEQ/L CALCIUM (test code = 2209) 9.9 MG/DL PROTEIN, TOTAL (test code = 2229) 7.4 G/DL ALBUMIN (test code = 2201) 4.9 G/DL CALC GLOBULIN (test code = 2240) 2.5 G/DL CALC A/G RATIO (test code = 2234) 2.0 RATIO BILIRUBIN, TOTAL (test code = 2207) 0.3 MG/DL ALKALINE PHOSPHATASE (test code = 2204) 147 U/L AST (test code = 2218) 37 U/L ALT (test code = 2219) 51 U/L HEMOGLOBIN [id number] 00:00:00* Test Item Value Reference Range Interpretation Comme nts HEMOGLOBIN A1c (test code = 93331) 6.3 % HEMOGLOBIN [id number] 00:00:00* Test Item Value Reference Range Interpretation Comme nts HEMOGLOBIN A1c (test code = 41530) 6.3 % HEMOGLOBIN [id number] 00:00:00* Test Item Value Reference Range Interpretation Comme nts HEMOGLOBIN A1c (test code = 29852) 6.3 % FREE 00:00:00* Test Item Value Reference Range Interpretation Comme nts FREE T3 (test code = 4273) 3.8 PG/ML FREE 00:00:00* Test Item Value Reference Range Interpretation Comme nts FREE T3 (test code = 4273) 3.8 PG/ML FREE T4 (THYROXINE)2021-10-17 00:00:00* Test Item Value Reference Range Interpretation Comme nts FREE T4 (THYROXINE) (test co de = 2823) 1.13 NG/DL FREE T4 (THYROXINE)2021-10-17 00:00:00* Test Item Value Reference Range Interpretation Comme nts FREE T4 (THYROXINE) (test co de = 2823) 1.13 NG/DL FREE T4 (THYROXINE)2021-10-17 00:00:00* Test Item Value Reference Range Interpretation Comme nts FREE T4 (THYROXINE) (test co de = 2823) 1.13 NG/DL RPR [id number] 17:25:44* Test Item Value Reference Range Interpretation Comme nts RPR Qual (test code = RPR Qual) Non-Reactive Non-Reactive Reactive Control (test code = Reactive Control) Reactive Weak Reactive Control (test code = Weak Reactive Control) Weak Reactive Non-Reactive Control (test c ode = Non-Reactive Control) Non-Reactive Lot # (test code = Lot #) [id number] Expiration Dt (test code = Expiration Dt) 08-13-2020 N Thyroid Stimulating [id number] 03:24:50* Test Item Value Reference Range Interpretation Comme nts TSH (test code = TSH) 0.305 mIU/mL 0.270-4.200 Lipid [id number] 03:19:20* Test Item Value Reference Range Interpretation Comme nts Cholesterol Total (test code = Cholesterol Total) 138 mg/dL 0-200 RISK OF HEART DISEASEPublished by [employer] [employer] Analyte Optimal Borderline Increased RiskCHOL <200 200-239 >240TRIG <150 150-199 >200HDL Male >60 <40HDL Female >60 <50LDL <100 130-159 >160LDL Near optimal is 100-129 Triglycerides (test code = Triglycerides) 87 mg/dL 9-200 HDL (test code = HDL) 58 mg/dL 50-60 LDL (test code = LDL) 63 mg/dL 0-130 The equation being used in this calculation is LDL = (Chol - HDL) - (Trig / 5) VLDL (test code = VLDL) 17 mg/dL 5-40 The equation luisana ng used in this calculation is VLDL = Trig / 5 Chol/HDL (test code = Chol/HDL) 2.4 ratio 0.0-4.4 LDL/HDL Ratio (test code = LDL/HDL Ratio) 1 N The equati on being used in this calculation is LDL/HDL Ratio=LDL Calc/HDL Chol Beta HCG [id number] 06:54:35* Test Item Value Reference Range Interpretation Comme nts HCG, Beta Quantitative (test code = HCG, Beta Quantitative) 0.83 mIU/mL N Weeks of Gestati on Ranges (mIu/mL)3 weeks 5.40-72.04 weeks 10.2-7085 weeks 217-08679 weeks 152-955110 weeks 4059-5836785 weeks 40122-3378938 weeks [id number] weeks [id number] weeks [id number] weeks 64297-5763774 weeks 37530-2253738 weeks 9381-1648580 weeks 7073-0403264 weeks 1511-95890
--- NOTE | 2023-12-27 18:45 | RAD REPORT ---
EXAM DESCRIPTION[facility] 6:24 pm CLINICAL HISTORY: dizziness COMPARISON: Chest Pa And Lat (2 Views) dated 06/22/2018; CHEST SINGLE VIEW dated 06/10/2015 TECHNIQUE: Portable AP view of the chest. FINDINGS: The lungs are clear. No pneumothorax or effusion. The cardiomediastinal contours are unre markable. IMPRESSION: No acute cardiopulmonary process.
[2023-12-27 18:46] LABS: Absolute Basophils 0.1 K/uL (0-0.5); Absolute Eosinophils 0.1 K/uL (0-0.5); Absolute Lymphocytes (CBC) 3.2 K/uL (0.7-4.9); Absolute Monocytes 0.5 K/uL (0.1-1.3); Absolute Neutrophil 5.1 K/uL (1.8-8.0); Basophils % 0.8 % (0-1.3); Eosinophils % 1.6 % (0-4.4); Hematocrit 41.9 % (36.0-45.0); Hemoglobin 14.4 g/dL (12.0-15.0); Lymphocytes % 35.5 % (15.3-44.8); MCH 31.3 pg (27.0-35.0); MCHC 34.2 g/dL (32.0-36.0); MCV 91.5 fL (80-100); MPV 7.9 fL (7.6-11.3); Monocytes % 5.6 % (3.3-12.3); Neutrophils % 56.5 % (41.7-73.7); Platelets 277 thou/uL (152-406); RBC Red Blood Cell Count 4.58 M/uL (3.86-4.86); Red Cell Distribution Width 13.4 % (12.1-15.2)
[2023-12-27 19:07] LABS: ALT/SGPT 55 U/L (13-56); AST/SGOT 27 U/L (15-37); Albumin 4.1 g/dL (3.4-5.0); Albumin/Globulin Ratio 1.1 (1.1-1.8); Alkaline Phosphatase 133 U/L (45-117); Anion Gap 8.8 mEq/L (5.0-15.0); BUN Blood Urea Nitrogen 9 mg/dL (7-18); Bicarbonate 25 mEq/L (21-32); Bilirubin Direct 0.1 mg/dL (0-0.2); Bilirubin Indirect, Calculated 0.3 mg/dL (0.2-0.8); Bilirubin Total 0.4 mg/dL (0.2-1.0); Globulin 3.7 g/dL (2.3-3.5); Glomerular Filtration Rate 100 ml/min (=/>90); Glucose Level 105 mg/dL (74-106); Magnesium 2.1 mg/dL (1.6-2.4); Potassium 3.8 mEq/L (3.5-5.1); Protein, Total 7.8 g/dL (6.4-8.2); Sodium Level 140 mEq/L (136-145)
[2023-12-27 19:11] LABS: Troponin High Sensitivity < 3.0 pg/mL (<58.9)
--- NOTE | 2023-12-27 19:38 | RAD REPORT ---
EXAM DESCRIPTION: CT - CTHCSPWOC - 12/27/2023 6:47 pm CLINICAL HISTORY: HEADACHE COMPARISON: Head C Spine Mpr Wo Con dated 02/18/2017 TECHNIQUE: Axial thin cut noncontrast CT images of the head were obtained. Axial thin cut noncontrast CT images of the cervical spine were obtained. Multiplanar reformatted images were generated and reviewed. All CT scans are performed using dose optimization technique as appropriate and may include automated exposure control or mA/KV adjustment according to patient size. FINDINGS: CT HEAD WITHOUT CONTRAST: No acute hemorrhage, hydrocephalus or extra-axial collection is identified.No areas of brain edema or midline shift. The paranasal sinuses and mastoids are clear.The calvarium is intact. CT CERVICAL SPINE WITHOUT CONTRAST: No fracture or subluxation.No prevertebral soft tissues swelling is identified. Periapical collectio ns along the included root remnants of the posterior right mandibular molars. IMPRESSION: No acute traumatic intracranial or cervical spine findings. Periapical collections along the included root remnants of the posterior right mandibular molars. Pl ease correlate with dental exam.
--- NOTE | 2023-12-27 20:09 | EDPHYS ---
Physician Documentation [facility] Name: Almaz Mario Age: 58 yrs Sex: Female : 1965 Arrival Date: 12/27/2023 Time: 17:36 Bed 13 Private MD: ED Physician Jarred Baker HPI: 12/26 18:54 This 58 yrs old Female presents to ER via Wheelchair with complaints of rt Dizziness, Head Injury Without LOC-Adult - 2 Weeks ago, Headache, Blurred Vision. 18:54 Patient presents to the ED with about 1 week of dizziness. She describes a vertigo type rt sensation where she has spinning, difficulty standing. It is worse when she turns her head from [id number]. She does report a headache as well to the back of her head, states that is similar to previous migraine, but not as severe. Of note, about 2 weeks ago, patient did fall backwards hitting her head. She had pain at that time but that pain did improve. Denies other acute complaints at this time, symptoms are moderate severity, no other aggravating or elevating factors.. Historical: - Allergies: 17:49 No Known Allergies; hb - Home Meds: 17:49 atorvastatin 20 mg Oral tab 1 tab once daily [Active]; Coricidin HBP 10-200 mg Oral cap hb as needed [Active]; gabapentin 600 mg Oral tab 2 tab 3 times per day [Active]; lisinopril 10 mg Oral tab 1 tab once daily [Active]; - PMHx: 17:49 Chronic pain; Hyperlipidemia; Hypertension; hb - Immunization history:: Adult Immunizations up to date. - Social history:: Smoking status: Patient denies any tobacco usage or history of. - Family history:: not pertinent. ROS: 18:54 Constitutional: Negative for fever, chills, and weight loss, Cardiovascular: Negative rt for chest pain, palpitations, and edema, Respiratory: Negative for shortness of breath, cough, wheezing, and pleuritic chest pain, Abdomen/GI: Negative for abdominal pain, nausea, vomiting, diarrhea, and constipation, MS/Extremity: Negative for injury and deformity, Skin: Negative for injury, rash, and discoloration, 18:54 Neuro: Positive for dizziness, headache, Negative for Exam: 18:54 Constitutional: This is a well developed, well nourished patient who is awake, alert, rt and in no acute distress. Head/Face: Normocephalic, atraumatic. Chest/axilla: Normal chest wall appearance and motion. Nontender with no deformity. No lesions are appreciated. Cardiovascular: Regular rate and rhythm with a normal S1 and S2. No gallops, murmurs, or rubs. Normal PMI, no JVD. No pulse deficits. Respiratory: Lungs have equal breath sounds bilaterally, clear to auscultation and percussion. No rales, rhonchi or wheezes noted. No increased work of breathing, no retractions or nasal flaring. Abdomen/GI: Soft, non-tender, with normal bowel sounds. No distension or tympany. No guarding or rebound. No evidence of tenderness throughout. Skin: Warm, dry with normal turgor. Normal color with no rashes, no lesions, and no evidence of cellulitis. MS/ Extremity: Pulses equal, no cyanosis. Neurovascular intact. Full, normal range of motion. 18:54 Eyes: 2-3 beats of left, nystagmus, extraocular muscles are intact, conjunctiva is normal. 2-3 beats of breath, nystagmus, head impulse and test of skew negative, no visual field deficits. 18:54 ECG was reviewed by the Attending Physician. 18:54 Neuro: Cranial nerves II through XII intact, strength and sensation intact in upper lower extremities, no ataxia [id number], speech normal, Vital Signs: 17:48 BP 153 / 94; Pulse 75; Resp 16; Temp 98.5(O); Pulse Ox 100% on R/A; Weight 68.04 kg; hb Height 5 ft. 1 in. ; Pain 8/10; 20:13 BP 129 / 81; Pulse 61; Resp 16; Temp 98; Pulse Ox 99% ; rv 17:48 Body Mass Index 28.34 (68.04 kg, 154.94 cm) hb 17:48 Pain Scale: Adult hb [place] Coma Score: 20:13 Eye Response: spontaneous(4). Motor Response: obeys commands(6). Verbal Response: rv oriented(5). Total: 15. MDM: 17:42 Patient medically screened. rt 20:10 Differential diagnosis: Peripheral vertigo, intracranial hemorrhage. Data reviewed: rt vital signs, nurses notes, lab test result(s), EKG, radiologic studies. I considered the following discharge prescriptions or medication management in the emergency department Medications were administered in the Emergency Department. See MAR. Independent interpretation of the following test(s) in the Emergency Department CT Scan: My interpretation is No intracranial hemorrhage seen on interpretation of CT scan images. Care significantly affected by the following chronic conditions: Hypertension. Counseling: I had a detailed discussion with the patient and/or guardian regarding the historical points, exam findings, and any diagnostic results supporting the discharge/admit diagnosis, lab results, radiology results, the need for outpatient follow up, to return to the emergency department if symptoms worsen or persist or if there are any questions or concerns that arise at home. Response to treatment: the patient's symptoms have markedly improved after treatment. ED course: Patient has no focal neurologic deficits, HI NTS exam is consistent with a peripheral vertigo, CT scan is unremarkable. Headache and vertigo have was completely resolved after treatment in the ED, patient is comfortable discharge, return precautions discussed.. 12/26 18:07 Order name: Basic Metabolic Panel; Complete Time: 19:17 rt 12/26 18:07 Order name: CBC with Diff; Complete Time: 19:17 rt 12/26 18:07 Order name: LFT's; Complete Time: 19:17 rt 12/26 18:07 Order name: Magnesium; Complete Time: 19:17 rt 12/26 18:07 Order name: Troponin HS; Complete Time: 19:17 rt 12/26 18:07 Order name: CT Head C Spine; Complete Time: 19:43 rt 12/26 18:07 Order name: XRAY Chest (1 view); Complete Time: 19:17 rt 12/26 18:07 Order name: EKG; Complete Time: 18:08 rt 12/26 18:07 Order name: Cardiac monitoring; Complete Time: 18:41 rt 12/26 18:07 Order name: EKG - Nurse/Tech; Complete Time: 18:41 rt 12/26 18:07 Order name: IV Saline Lock; Complete Time: 18:41 rt 12/26 18:07 Order name: Labs collected and sent; Complete Time: 18:41 rt 12/26 18:07 Order name: O2 Per Protocol; Complete Time: 18:09 rt 12/26 18:07 Order name: O2 Sat Monitoring; Complete Time: 18:09 rt EC:54 Rate is 60 beats/min. Rhythm is regular, Normal Sinus Rhythm with Right bundle branch rt block. Left axis deviation noted. VA interval is normal. QT interval is normal. No Q waves. No ST changes noted. Administered Medications: 18:41 Drug: Meclizine PO 50 mg PO once Route: PO; kc6 20:14 Follow up: Response: No adverse reaction; Marked relief of symptoms rv 18:41 Drug: Magnesium Sulfate IVPB 2 grams IVPB once over 2 hrs Route: IVPB; Infused Over: 2 kc6 hrs; Site: left antecubital; 20:14 Follow up: Response: No adverse reaction; Marked relief of symptoms; IV Status: rv Completed infusion 18:41 Drug: metoCLOPramide IVP 10 mg IVP once; over 1 to 2 minutes Route: IVP; Site: left kc antecubital; 20:14 Follow up: Response: No adverse reaction; Marked relief of symptoms rv 18:41 Drug: diphenhydrAMINE IVP 25 mg IVP once Route: IVP; Site: left antecubital; kc 20:14 Follow up: Response: No adverse reaction; Marked relief of symptoms rv Disposition Summary: 12/27/23 20:08 Discharge Ordered Notes: Location: Home rt Problem: new rt Symptoms: have improved rt Condition: Stable rt Diagnosis - Other peripheral vertigo rt - Headache rt Followup: rt - With: Private Physician - When: 2 - 3 days - Reason: Discharge Instructions: - Discharge Summary Sheet rt - Benign Positional Vertigo rt - General Headache Without Cause rt Forms: - Medication Reconciliation Form rt - Thank You Letter rt - Antibiotic Education rt - Prescription Opioid Use rt - Patient Portal Instructions rt - Leadership Thank You Letter rt Prescriptions: - Meclizine 25 mg Oral Tablet - take 1 tablet ORAL route every 8 hours As needed; 30 tablet; Refills: 0, rt Product Selection Permitted Signatures: Dispatcher [employer] Melissa Frey RN RN Ifeoma Nichole RN RN kc6 Jarred Baker MD MD rt Clinton Walden RN rv
--- NOTE | 2023-12-27 20:09 | ER ---
Nurse's Notes [facility] Name: Almaz Mario Age: 58 yrs Sex: Female : 1965 Arrival Date: 12/27/2023 Time: 17:36 Bed 13 Private MD: Diagnosis: Other peripheral vertigo;Headache Presentation: 12/26 17:48 Chief complaint: Worsening headache, pain in neck, and dizziness after mechanical fall hb from standing 2 weeks ago. Pt fell and hit the back of her head on corner of wooden furniture, felt and heard a "crack and pop" in her neck. Negative LOC. Coronavirus screen: At this time, the client does not indicate any symptoms associated with coronavirus-19. Ebola Screen: No symptoms or risks identified at this time. Initial Sepsis Screen: Does the patient meet any 2 criteria? No. Patient's initial sepsis screen is negative. Does the patient have a suspected source of infection? No. Patient's initial sepsis screen is negative. Risk Assessment: Do you want to hurt yourself or someone else? Patient reports no desire to harm self or others. Onset of symptoms was December 13, 2023. 17:48 Method Of Arrival: Wheelchair hb 17:48 Acuity: KELLY 3 hb Triage Assessment: 17:51 General: Appears in no apparent distress. Behavior is calm, cooperative. Pain: Pain hb currently is 8 out of 10 on a pain scale. Neuro: Level of Consciousness is awake, alert, obeys commands, Oriented to person, place, time, situation, Reports dizziness, headache. Cardiovascular: Patient's skin is warm and dry. Respiratory: Airway is patent Respiratory effort is even, unlabored, Respiratory pattern is regular, symmetrical. Historical: - Allergies: 17:49 No Known Allergies; hb - Home Meds: 17:49 atorvastatin 20 mg Oral tab 1 tab once daily [Active]; Coricidin HBP 10-200 mg Oral cap hb as needed [Active]; gabapentin 600 mg Oral tab 2 tab 3 times per day [Active]; lisinopril 10 mg Oral tab 1 tab once daily [Active]; - PMHx: 17:49 Chronic pain; Hyperlipidemia; Hypertension; hb - Immunization history:: Adult Immunizations up to date. - Social history:: Smoking status: Patient denies any tobacco usage or history of. - Family history:: not pertinent. Screenin:45 [facility] ED Fall Risk Assessment (Adult) History of falling in the last 3 months, kc6 including since admission Yes- single mechanical fall (1 pt) Confusion or Disorientation No (0 pts) Intoxicated or Sedated No (0 pts) Impaired Gait No (0 pts) Mobility Assist Device Used No (0 pt) Altered Elimination No (0 pt) Score/Fall Risk Level 0 - 2 = Low Risk. Abuse screen: Denies threats or abuse. Denies injuries from another. Nutritional screening: No deficits noted. Tuberculosis screening: No symptoms or risk factors identified. Assessment: 18:45 General: Appears in no apparent distress. comfortable, Behavior is calm, cooperative, kc6 appropriate for age. Pain: Denies pain. Neuro: Level of Consciousness is awake, alert, obeys commands, Oriented to person, place, time, situation, Appropriate for age Reports dizziness. Cardiovascular: Capillary refill < 3 seconds. Respiratory: Airway is patent Trachea midline Respiratory effort is even, unlabored, Respiratory pattern is regular, symmetrical. GI: No signs and/or symptoms were reported involving the gastrointestinal system. : No signs and/or symptoms were reported regarding the genitourinary system. EENT: No signs and/or symptoms were reported regarding the EENT system. Derm: No signs and/or symptoms reported regarding the dermatologic system. Skin is intact, is healthy with good turgor, Skin is pink, warm \\T\\ dry. Musculoskeletal: No signs and/or symptoms reported regarding the musculoskeletal system. Circulation, motion, and sensation intact. Capillary refill < 3 seconds, Range of motion: intact in all extremities. Vital Signs: 17:48 BP 153 / 94; Pulse 75; Resp 16; Temp 98.5(O); Pulse Ox 100% on R/A; Weight 68.04 kg; hb Height 5 ft. 1 in. ; Pain 8/10; 20:13 BP 129 / 81; Pulse 61; Resp 16; Temp 98; Pulse Ox 99% ; rv 17:48 Body Mass Index 28.34 (68.04 kg, 154.94 cm) hb 17:48 Pain Scale: Adult hb [place] Coma Score: 20:13 Eye Response: spontaneous(4). Motor Response: obeys commands(6). Verbal Response: rv oriented(5). Total: 15. ED Course: 17:38 Patient arrived in ED. im 17:39 Jarred Baker MD is Attending Physician. rt 17:49 Triage completed. hb 17:51 Arm band placed on. hb 18:08 Ifeoma Nichole RN is Primary Nurse. kc6 18:26 XRAY Chest (1 view) In Process Unspecified. EDMS 18:42 Inserted saline lock: 22 gauge in left antecubital area, using aseptic technique. Blood kc6 collected. Patient maintains SpO2 saturation greater than 95% on room air. 18:45 Patient has correct armband on for positive identification. Bed in low position. Call kc6 light in reach. Side rails up X2. Client placed on continuous cardiac and pulse oximetry monitoring. NIBP monitoring applied. school bus monitor on. 18:47 CT Head C Spine In Process Unspecified. EDMS 19:00 Report given to CONNOR Pichardo. kc6 20:13 No provider procedures requiring assistance completed. IV discontinued, intact, rv bleeding controlled, No redness/swelling at site. Pressure dressing applied. Administered Medications: 18:41 Drug: Meclizine PO 50 mg PO once Route: PO; kc6 20:14 Follow up: Response: No adverse reaction; Marked relief of symptoms rv 18:41 Drug: Magnesium Sulfate IVPB 2 grams IVPB once over 2 hrs Route: IVPB; Infused Over: 2 kc6 hrs; Site: left antecubital; 20:14 Follow up: Response: No adverse reaction; Marked relief of symptoms; IV Status: rv Completed infusion 18:41 Drug: metoCLOPramide IVP 10 mg IVP once; over 1 to 2 minutes Route: IVP; Site: left kc6 antecubital; 20:14 Follow up: Response: No adverse reaction; Marked relief of symptoms rv 18:41 Drug: diphenhydrAMINE IVP 25 mg IVP once Route: IVP; Site: left antecubital; kc6 20:14 Follow up: Response: No adverse reaction; Marked relief of symptoms rv Medication: 20:15 VIS not applicable for this client. rv Outcome: 20:08 Discharge ordered by . rt 20:15 Discharged to home ambulatory, rv 20:15 Condition: good 20:15 Discharge instructions given to patient, Instructed on discharge instructions, follow up and referral plans. medication usage, Demonstrated understanding of instructions, follow-up care, medications, Prescriptions given X 1, 20:15 Patient left the ED. rv Signatures: Dispatcher [employer] EDMelissa Naranjo RN RN Clinton Nolasco RN RN rv Campbell, Kaitlyn, RN RN kc6 Jarred Baker MD MD rt Jacki Brannon
[2023-12-27 20:22] VITALS: BP 129/81; TEMP 98; O2SAT 99
--- NOTE | 2023-12-29 15:31 | EKG ---
Test Date: 2023-12-27 Test Time: 18:08:02 Wireless Watcher: MARY MEASUREMENT RESULTS: Intervals: Rate: 60 CA: 168 QRSD: 118 QT: 454 QTc: 454 Baker: P: 56 CA: 168 QRS: -12 T: 20 INTERPRETIVE STATEMENTS: Normal sinus rhythm Low voltage QRS Incomplete right bundle branch block Borderline ECG Compared to ECG 04/19/2019 10:01:16 Low QRS voltage now present Electronically Signed On 12-29-23 15:29:55 CDT by Serafin Grady
== END ==
LOC: ER 17:36
DX: H81.399 Other peripheral vertigo, unspecified ear (principal)
CPT/HCPCS: 36415; 70450; 71045; 72125; 80048; 80076; 83735; 84484; 85025; 93005; 96365; 96366; 96375; 99285; J1200; J2765; J3475; J8597